=== PATIENT | male | born 1945 | race Caucasian/White ===

== ENCOUNTER 2019-06-20 11:55 | Inpatient (IN) | payer MEDICARE, BC ==
--- NOTE | 2019-06-20 12:19 | EDM.PDOC ---
ED HPI GENERAL MEDICAL PROBLEM - General Chief Complaint: Gastrointestinal Problem Stated Complaint: RECTAL BLEEDING Time Seen by Provider: 06/20/19 12:08 Source of Information: Reports: Patient History Limitations: Reports: No Limitations - History of Present Illness INITIAL COMMENTS - FREE TEXT/NARRATIVE: 73-year-old male presents to the ED feeling weak and very dizzy and lightheaded with standing. This started more or less today. He reports developing black tarry stools without any obvious fresh blood since June 18. He believes he had two bowl movements that day 2 bowel movements on wednesday and 2 this morning CONTAINING dark black stool. Denies taking any Pepto-Bismol. Patient does take a 325 Stormy Aspirin daily and Anacin on a regular basis for chronic low back pain usually daily. Is no history of peptic ulcer disease. Denies any upper abdominal pain nausea or vomiting. No hematemesis. As of has had a colonoscopy within the last 3 years and was told to come back in 10 years no abnormalities were appreciated. His appetite is still present and he's been eating normally. States he has a little bit of pain in the right lower quadrant of the abdomen intermittently but no severe abdominal cramps. No troubles voiding. Onset: Sudden Onset Date: 06/18/19 Duration: Day(s):, Other (Has been having on average 2 black tarry stools per day 4 days.) Location: Reports: Other (Feeling lightheaded and dizzy with standing.) Quality: Reports: Other (Recurrent black tarry stools 4 days. No associated dizziness lightheadedness and weakness) Severity: Moderate (and shortness of breath on minimal exertion.) Improves with: Reports: Rest Worsens with: Reports: Other Context: Reports: Other (Clinically has upper GI bleeding with melena stool 4 days.). Denies: Activity (Warren's when standing up and walking.), Exercise, Lifting, Sick Contact, Trauma Associated Symptoms: Reports: Malaise, Shortness of Breath (On minimal exertion. ), Weakness. 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.) Suprapubic Pain Score (Numeric/FACES): 4 - Related Data Allergies Allergy/AdvReac Type Severity Reaction Status Date / Time No Known Allergies Allergy Verified 06/20/19 12:06 Past Medical History Cardiovascular History: Reports: Hypertension Social & Family History - Tobacco Use Smoking Status *Q: Never Smoker - Caffeine Use Caffeine Use: Reports: Coffee - Recreational Drug Use Recreational Drug Use: No - Living Situation & Occupation Living situation: Reports: Occupation: Retired ED ROS GENERAL - Review of Systems Review Of Systems: See Below Constitutional: Reports: Malaise, Weakness, Fatigue. Denies: Fever, Chills, Decreased Appetite, Weight Loss HEENT: Reports: Glasses Respiratory: Reports: Shortness of Breath. Denies: Wheezing, Pleuritic Chest Pain, Cough, Sputum Cardiovascular: Reports: Blood Pressure Problem, Dyspnea on Exertion (Since noting), Lightheadedness. Denies: Chest Pain, Claudication (Takes medication for blood pressure), Edema, Orthopnea Endocrine: Reports: Fatigue ( dark black tarry stools.) GI/Abdominal: Reports: Abdominal Pain (Mild intermittent right lower quadrant abdominal pain.), Black Stool, Melena, Other. Denies: Nausea (Stools have been black and tarry for the last 4 days usually 2 bowel movements per day.) : Reports: No Symptoms Musculoskeletal: Reports: Back Pain (Chronic low back pain and knee pain intermittently for which he takes Anacin fairly regular. Some days 3 times per day.) Skin: Reports: Pallor Neurological: Reports: Dizziness, Weakness (And lightheadedness with standing. This is what made him come to the hospital today.) Psychiatric: Reports: No Symptoms Hematologic/Lymphatic: Reports: No Symptoms Immunologic: Reports: No Symptoms ED EXAM, GI/ABD - Physical Exam Exam: See Below Exam Limited By: No Limitations General Appearance: Alert, WD/WN, No Apparent Distress, Other (He has pallid in color. Afebrile. Resting tachycardia of 1 22/m. BP 125/72 supine. Sats are 100% on room air. Orthostatic BPs reveal that he dropped down to 68/26 standing. ) Eyes: Bilateral: Pale Conjunctiva (Mild to moderate pallor of the blood for margins.) Throat/Mouth: Normal Inspection, Normal Lips, Other Head: Atraumatic (Tongue is slightly coated and white.), Normocephalic Neck: Normal Inspection, Supple, Non-Tender, Full Range of Motion. No: Carotid Bruit, Limited Range of Motion, Lymphadenopathy (R) Respiratory/Chest: No Respiratory Distress, Lungs Clear, Normal Breath Sounds, No Accessory Muscle Use, Chest Non-Tender Cardiovascular: Normal Peripheral Pulses, Regular Rate, Rhythm, No Gallop, No Murmur, No Rub. No: No Edema GI/Abdominal Exam: Soft, Non-Tender, No Organomegaly, No Mass, Abnormal Bowel Sounds (Bowel sounds are hyperactive in all 4 quadrants.), Other (No evidence of previous abdominal surgery.). No: Distended (No tympany to percussion.) (Male) Exam: No Hernia Rectal (Males) Exam: Black Stool Back Exam: Vertebral Tenderness (Lumbar spine.) Extremities: Pedal Edema (2+ pitting edema both lower extremities to about mid tib-fib bilaterally.), Other (He has some changes in both knees suggestive of osteoarthritic changes with no previous surgery to the knees.) Neurological: Alert, Oriented ( Left is slightly worse on the right.), CN II- XII Intact, Normal Cognition Psychiatric: Normal Affect, Normal Mood Skin Exam: Warm, Dry, Intact, Pallor EKG INTERPRETATION EKG Date: 06/20/19 Time: 12:43 Rhythm: NSR Rate (Beats/Min): 98 [place]: Normal P-Wave: Present QRS: Other (Early R-wave transition consider right ventricular hypertrophy versus septal hypertrophy pattern.) ST-T: Other QT: Normal EKG Interpretation Comments: Borderline ECG Course - Vital Signs Last Recorded V/S: Last Vital Signs Temp 35.8 C 06/20/19 12:01 Pulse 122 H 06/20/19 12:01 Resp 16 06/20/19 12:01 BP 125/72 06/20/19 12:01 Pulse Ox 100 06/20/19 12:01 Orthostatic Blood Pressure [ 68/26 Standing] Orthostatic Blood Pressure [ 109/68 Sitting] Orthostatic Blood Pressure [ 105/70 Supine] - Orders/Labs/Meds Orders: Active Orders 24 hr Category Date Time Status Admission Status [Patient Status] [ADT] Routine ADT 06/20/19 14:53 Active EKG Documentation Completion [RC] STAT Care 06/20/19 12:22 Active Notify Provider Consults [RC] ASDIRECTED Care 06/20/19 14:33 Active Orthostatic Vital Signs [RC] ASDIRECTED Care 06/20/19 12:28 Active Consult to Physician [CONS] Routine Cons 06/20/19 14:32 Active Guaiac [OCCULT BLOOD DIAGNOSTIC] [OP] Stat Lab 06/20/19 12:26 Ordered PACKED CELLS [RED BLOOD CELLS LP] [BBK] Stat Lab 06/20/19 14:45 Received PATIENT RETYPE [BBK] Routine Lab 06/20/19 14:45 Received RED BLOOD CELLS LP [BBK] Stat Lab 06/20/19 12:25 Results TYPE AND SCREEN [BBK] Stat Lab 06/20/19 12:25 Results Pantoprazole [ProTONIX IV] 80 mg Med 06/20/19 14:30 Active Sodium Chloride 0.9% [Normal Saline] 100 ml IV Q10H Sodium Chloride 0.9% [Normal Saline] 1,000 ml Med 06/20/19 12:30 Active IV ASDIRECTED Sodium Chloride 0.9% [Normal Saline] 1,000 ml Med 06/20/19 14:30 Active IV ASDIRECTED Medication Orders Sodium Chloride (Normal Saline) 1,000 mls @ 999 mls/hr IV ASDIRECTED JOSE Last Admin: 06/20/19 12:59 Dose: 999 mls/hr Sodium Chloride (Normal Saline) 1,000 mls @ 250 mls/hr IV ASDIRECTED JOSE Last Admin: 06/20/19 14:50 Dose: 250 mls/hr Pantoprazole Sodium 80 mg/ (Sodium Chloride) 100 mls @ 10 mls/hr IV Q10H [facility] Last Admin: 06/20/19 15:15 Dose: 10 mls/hr Labs: Laboratory Tests 06/20/19 06/20/19 06/20/19 Range/Units 12:25 12:25 12:25 WBC 14.05 H (4.23-9.07) K/mm3 RBC 3.17 L (4.63-6.08) M/mm3 Hgb 9.6 L (13.7-17.5) gm/L Hct 30.2 L (40.1-51.0) % MCV 95.3 H (79.0-92.2) fl MCH 30.3 (25.7-32.2) pg MCHC 31.8 L (32.2-35.5) g/dl RDW Std Deviation 46.9 H (35.1-43.9) fL Plt Count 65 L (163-337) K/mm3 MPV 11.4 (9.4-12.3) fl Neut % (Auto) 84.9 H (34.0-67.9) % Lymph % (Auto) 8.9 L (21.8-53.1) % [place] % (Auto) 5.3 (5.3-12.2) % Eos % (Auto) 0.4 L (0.8-7.0) Baso % (Auto) 0.3 (0.1-1.2) % Neut # (Auto) 11.93 H (1.78-5.38) K/mm3 Lymph # (Auto) 1.25 L (1.32-3.57) K/mm3 [place] # (Auto) 0.74 (0.30-0.82) K/mm3 Eos # (Auto) 0.06 (0.04-0.54) K/mm3 Baso # (Auto) 0.04 (0.01-0.08) K/mm3 Manual Slide Review Abnormal smear PT 11.7 (9.7-12.0) SECONDS INR 1.08 APTT 20 L (22-31) SECONDS Sodium 142 (136-145) mEq/L Potassium 4.2 (3.5-5.1) mEq/L Chloride 110 H (98-107) mEq/L Carbon Dioxide 22 (21-32) mEq/L Anion Gap 14.2 (5-15) BUN 32 H (7-18) mg/dL Creatinine 1.0 (0.7-1.3) mg/dL Est Cr Clr Drug Dosing 66.77 mL/min Estimated GFR (MDRD) > 60 (>60) mL/min BUN/Creatinine Ratio 32.0 H (14-18) Glucose 178 H (83-115) mg/dL Calcium 8.7 (8.5-10.1) mg/dL Magnesium 1.9 (1.8-2.4) mg/dl Total Bilirubin 0.4 (0.2-1.0) mg/dL AST 15 (15-37) U/L ALT 27 (16-63) U/L Alkaline Phosphatase 50 (46-116) U/L Troponin I < 0.017 (0.00-0.056) ng/mL C-Reactive Protein < 0.2 (<1.0) mg/dL NT-Pro-B Natriuret Pep (0-125) pg/mL Total Protein 5.5 L (6.4-8.2) g/dl Albumin 2.8 L (3.4-5.0) g/dl Globulin 2.7 gm/dL Albumin/Globulin Ratio 1.0 (1-2) Blood Type Gel Antibody Screen Crossmatch 06/20/19 06/20/19 Range/Units 12:25 12:25 WBC (4.23-9.07) K/mm3 RBC (4.63-6.08) M/mm3 Hgb (13.7-17.5) gm/L Hct (40.1-51.0) % MCV (79.0-92.2) fl MCH (25.7-32.2) pg MCHC (32.2-35.5) g/dl RDW Std Deviation (35.1-43.9) fL Plt Count (163-337) K/mm3 MPV (9.4-12.3) fl Neut % (Auto) (34.0-67.9) % Lymph % (Auto) (21.8-53.1) % [place] % (Auto) (5.3-12.2) % Eos % (Auto) (0.8-7.0) Baso % (Auto) (0.1-1.2) % Neut # (Auto) (1.78-5.38) K/mm3 Lymph # (Auto) (1.32-3.57) K/mm3 [place] # (Auto) (0.30-0.82) K/mm3 Eos # (Auto) (0.04-0.54) K/mm3 Baso # (Auto) (0.01-0.08) K/mm3 Manual Slide Review PT (9.7-12.0) SECONDS INR APTT (22-31) SECONDS Sodium (136-145) mEq/L Potassium (3.5-5.1) mEq/L Chloride (98-107) mEq/L Carbon Dioxide (21-32) mEq/L Anion Gap (5-15) BUN (7-18) mg/dL Creatinine (0.7-1.3) mg/dL Est Cr Clr Drug Dosing mL/min Estimated GFR (MDRD) (>60) mL/min BUN/Creatinine Ratio (14-18) Glucose (83-115) mg/dL Calcium (8.5-10.1) mg/dL Magnesium (1.8-2.4) mg/dl Total Bilirubin (0.2-1.0) mg/dL AST (15-37) U/L ALT (16-63) U/L Alkaline Phosphatase (46-116) U/L Troponin I (0.00-0.056) ng/mL C-Reactive Protein (<1.0) mg/dL NT-Pro-B Natriuret Pep 41 (0-125) pg/mL Total Protein (6.4-8.2) g/dl Albumin (3.4-5.0) g/dl Globulin gm/dL Albumin/Globulin Ratio (1-2) Blood Type A POSITIVE Gel Antibody Screen Negative Crossmatch See Detail Meds: Medications Generic Name Dose Route Start Last Admin Trade Name Freq PRN Reason Stop Dose Admin Sodium Chloride 1,000 mls @ 999 mls/hr 06/20/19 12:30 06/20/19 12:59 Normal Saline IV 999 mls/hr ASDIRECTED JOSE Administration Sodium Chloride 1,000 mls @ 250 mls/hr 06/20/19 14:30 06/20/19 14:50 Normal Saline IV 250 mls/hr ASDIRECTED JOSE Administration Pantoprazole Sodium 80 mg/ 100 mls @ 10 mls/hr 06/20/19 14:30 06/20/19 15:15 Sodium Chloride IV 10 mls/hr Q10H JOSE Administration Discontinued Medications Generic Name Dose Route Start Last Admin Trade Name Freq PRN Reason Stop Dose Admin Pantoprazole Sodium 80 mg 06/20/19 12:29 06/20/19 12:53 Protonix Iv IVPUSH 06/20/19 12:30 80 mg BOLUS ONE Administration - Radiology Interpretation Free Text/Narrative:: 73-year-old male presents to the ED with a 3 day history of melena stool 2 last every day. Today he presents because he is getting lightheaded dizzy with standing and feeling increasing weakness. Appreciates shortness of breath on minimal exertion which is not usual for him. He denies any abdominal pain other than intermittent right lower quadrant pain. Nipped and cramping. The ball been black in color with no noted bright red blood. No pre-past history of GI bleeding. An ostomy 3 years ago which was reportedly normal. Currently taking 325 aspirin daily and Anacin almost on a daily basis which is most likely the cause of his GI bleeding. Appears to have an upper GI bleed. Is mildly pallid on examination. He has a resting tachycardia and is significantly orthostatic on exam with BP dropping to 68/26 standing. Plan normal saline at open. Routine labs including coags to be done. Patient will receive Protonix 80 mg IV bolus. - Re-Assessments/Exams Free Text/Narrative Re-Assessment/Exam: 06/20/19 13:38 White count is elevated at 14.05. Auto differential shows 85% neutrophils. Manual differential is pending. Hemoglobin is low at 9.6. Hematocrit is 30.2. MCV is 95.3. Platelet count is only 65,000. PT is 11.7 with an INR of 1.08. PTT is 20. Sodium 142 with a potassium of 4.2. Chloride 110 with a bicarbonate 22. Anion gap is 14.2. BUN is 32. Is 1.0. GFR remains greater than 60. Glucose is elevated at 178. Calcium is 8.7 with a magnesium of 1.9. Liver function is normal. Troponin I is less than 0.017. C-reactive protein is less than 0.2. BNP is 41. Total protein is low at 5.5 with albumin fraction of 2.8. Chest x-ray reveals a 2.1 cm left to mid lower lung mass suggestive of a neoplasm. The bony structures are otherwise grossly normal. Cardiac silhouetteis within normal limits. It is recommended that the patient have a noncontrast CT of the chest for further evaluation. 06/20/19 13:58 Patient will need to be admitted to the hospital and discuss case with Dr. Hedrick front window cashier hospitalist. 06/20/19 14:[address] Hedrick and he requested the patient be admitted to the intensive care for close monitoring since his blood pressures been somewhat tenuous with active GI bleeding. I will discuss the case with Dr. lópez on-call surgeon to see if she is available for upper GI endoscopy tomorrow. She will have CT of his chest while he is here noncontrast to rule out anything sinister in his left upper lung. 06/20/19 14:[address] Conklin--front window cashier surgeon and she will see the patient in consultation in the intensive care unit. 06/20/19 14:58 CT of the chest is been completed without contrast as per radiologist's request. [place] lesion appreciated left lower lobe of the lung on the upper lateral segment. It has a dimension of approximately 15 mm x 14 mm. I will await his report in this regard. 06/20/19 15:20 CT scan of the chest is been completed. He was done without contrast. Mass is identified within the left lung base measuring 2.0 cm in size. This contains no abnormal calcifications. There are negative Hounsfield unit measurements within the mass suggesting fat. 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 Minimal nodule is also appreciated within the right middle lobe measuring 4 mm. Slight scarring is noted within the right base. Some pleural nodule noted within the right base measuring 2.2 mm. No mediastinal adenopathy is identified coronary artery calcification is noted. Mild atherosclerotic calcination is seen within the thoracic aorta without aneurysm. No pericardial thickening is identified. Incidentally prominent collecting systems of both kidneys particularly on the left side appreciated. Difficult to rule out a left-sided hydronephrosis. And postvoid bladder scan. Departure - Departure Time of Disposition: 15:22 Disposition: Admitted As Inpatient 67 Condition: Fair Clinical Impression: Nodule of lower lobe of left lung, Upper gastrointestinal bleed, Orthostatic hypotension, Anemia - Discharge Information *PRESCRIPTION DRUG MONITORING PROGRAM REVIEWED*: Not Applicable *COPY OF PRESCRIPTION DRUG MONITORING REPORT IN PATIENT ROSAURA: Not Applicable Referrals: Andrzej Zhong Jr, MD [Primary Care Provider] - Forms: ED Department Discharge - My Orders Last 24 Hours: My Active Orders 06/20/19 12:22 EKG Documentation Completion [RC] STAT 06/20/19 12:25 RED BLOOD CELLS LP [BBK] Stat TYPE AND SCREEN [BBK] Stat 06/20/19 12:26 Guaiac [OCCULT BLOOD DIAGNOSTIC] [OP] Stat 06/20/19 12:28 Orthostatic Vital Signs [RC] ASDIRECTED 06/20/19 12:30 Sodium Chloride 0.9% [Normal Saline] 1,000 ml IV ASDIRECTED 06/20/19 14:30 Pantoprazole [ProTONIX IV] 80 mg Sodium Chloride 0.9% [Normal Saline] 100 ml IV Q10H Sodium Chloride 0.9% [Normal Saline] 1,000 ml IV ASDIRECTED 06/20/19 14:32 Consult to Physician [CONS] Routine 06/20/19 14:33 Notify Provider Consults [RC] ASDIRECTED 06/20/19 14:45 PACKED CELLS [RED BLOOD CELLS LP] [BBK] Stat PATIENT RETYPE [BBK] Routine 06/20/19 14:53 Admission Status [Patient Status] [ADT] Routine - Assessment/Plan Last 24 Hours: My Active Orders 06/20/19 12:22 EKG Documentation Completion [RC] STAT 06/20/19 12:25 RED BLOOD CELLS LP [BBK] Stat TYPE AND SCREEN [BBK] Stat 06/20/19 12:26 Guaiac [OCCULT BLOOD DIAGNOSTIC] [OP] Stat 06/20/19 12:28 Orthostatic Vital Signs [RC] ASDIRECTED 06/20/19 12:30 Sodium Chloride 0.9% [Normal Saline] 1,000 ml IV ASDIRECTED 06/20/19 14:30 Pantoprazole [ProTONIX IV] 80 mg Sodium Chloride 0.9% [Normal Saline] 100 ml IV Q10H Sodium Chloride 0.9% [Normal Saline] 1,000 ml IV ASDIRECTED 06/20/19 14:32 Consult to Physician [CONS] Routine 06/20/19 14:33 Notify Provider Consults [RC] ASDIRECTED 06/20/19 14:45 PACKED CELLS [RED BLOOD CELLS LP] [BBK] Stat PATIENT RETYPE [BBK] Routine 06/20/19 14:53 Admission Status [Patient Status] [ADT] Routine
[2019-06-20] MEDS ORDERED: Pantoprazole 40 MG Vial IVPUSH ONE (12:29)
[2019-06-20] MEDS ORDERED: Sodium Chloride 0.9% 1,000 ML IV SCH ×2 (12:30→14:30)
--- NOTE | 2019-06-20 13:09 | CR ---
Chest: Portable view of the chest was obtained. Comparison: No prior chest imaging. Nodule is identified within the left mid to lower lung measuring 2.1 cm. Lungs otherwise are clear. Heart size and mediastinum are normal. Bony structures are grossly intact. Impression: 1. Nodule within the left lung. Noncontrast chest CT recommended to further evaluate. Neoplasm is within the differential at this point. 2. Nothing acute is otherwise seen on portable chest x-ray. Diagnostic code #9
--- NOTE | 2019-06-20 15:11 | CT ---
CT chest Technique: Multiple axial sections were obtained from above the lung apices inferiorly through the lung base. Intravenous contrast not utilized. Findings: Slightly prominent renal pelvis noted on both sides particularly left side. Difficult to exclude hydronephrosis particularly on the left side. Mass is identified within the left lung base measuring 2.0 cm in size. This contains no abnormal calcifications. There are negative Hounsfield unit measurements within this mass suggesting fat. Findings most likely due to a benign hamartoma. Minimal nodule is noted within the right middle lobe measuring 4 mm. Slight scarring is noted within the right base. Small subpleural nodule noted within the right base measuring 2.2 mm. No mediastinal adenopathy is seen. Coronary artery calcification is noted. Mild atherosclerotic calcification seen within the thoracic aorta without aneurysm. No pericardial thickening is seen. Degenerative change noted within the spine. Impression: 1. Fat within previously noted left lung nodule. Findings suggest the possibility of hamartoma. 2. Two small nodules one within the right middle lobe and one within the right lung base. Recommend repeat noncontrast chest CT study in 9 months to confirm stability. 3. Prominent collecting systems of both kidneys particularly on the left side. These dilated pelves are not completely included on this exam and difficult to exclude left-sided hydronephrosis. Please correlate if patient has any abdominal symptoms. Diagnostic code #3
[2019-06-20] MEDS: Pantoprazole 80 MG in Sodium Chloride 0.9% 100 ML IV SCH (15:15)
[2019-06-20] MEDS ORDERED: Ondansetron 4 MG/2 ML SDV IV PRN (15:56)
[2019-06-20] MEDS ORDERED: Acetaminophen 325 MG Tab PO PRN (15:56)
[2019-06-20] MEDS ORDERED: Albuterol/Ipratropium 3.0-0.5 MG/3 ML Neb Soln NEB PRN (15:56)
[2019-06-20] MEDS ORDERED: Promethazine 6.25 MG in Sodium Chloride 0.9% 50 ML IV PRN (15:56)
[2019-06-20] MEDS ORDERED: Acetaminophen/HYDROcodone 325-5 MG Tab PO PRN (15:56)
--- NOTE | 2019-06-20 15:56 | PCM.HP.2 ---
H&P History of Present Illness - General Date of Service: 06/20/19 Admit Problem/Dx: Admission Diagnosis/Problem Admission Diagnosis/Problem Gastrointestinal hemorrhage Source of Information: Patient, Family, Old Records, Provider, RN Notes Reviewed History Limitations: Reports: No Limitations - History of Present Illness Initial Comments - Free Text/Narative: This is 73 yo pleasant elderly white male with past medical hx/o HTN, HLD and Class I Obesity who comes in with complaints of 3 day hx/o Melena associated with generalized weakness, dizziness and lightheadedness upon standing. He denies any hx/o PUD or GI Bleed. He is not taking Pepto Bismol or Iron Supplement. However he takes 325 ASA and ANACIN for back pain control. He states his colon was scoped in the past with benign findings. His initial work up in ED shows a CBC remarkable for WBC of 14.05, RBC of 3.17, Hgb of 9.6, Hct of 30.2, MCV of 95.3, MCHC of 31.8, RDW of 46.9, Platelet count of 65, Neutrophils of 84.9%, lymphocytes of 8.9%, and Eosinophils of 0.4%. His Chemistry is significant for Cl of 110, BUN of 32, BS of 178, Total Protein of 5.5, and Albumin of 2.8. His Chest CT scan report read as fat within left lung nodule suggestive of hamartoma. 2 small nodules one within the right middle lobe and one within the right lung base. While in ED, he was positive for orthostasis. He received volume resuscitation before her was moved to floor for further work up. He is primarily coming in for Melena/Upper GI Bleed. Suprapubic Pain Score (Numeric/FACES): 4 - Related Data Allergies/Adverse Reactions: Allergies Allergy/AdvReac Type Severity Reaction Status Date / Time No Known Allergies Allergy Verified 06/20/19 12:06 Home Medications: Home Meds Diltiazem HCl [Diltiazem 24Hr Cd] 240 mg PO DAILY 06/20/19 [History] atorvaSTATin [Lipitor] 40 mg PO DAILY 06/20/19 [History] Past Medical History Cardiovascular History: Reports: Hypertension Social & Family History - Tobacco Use Smoking Status *Q: Never Smoker - Caffeine Use Caffeine Use: Reports: Coffee - Recreational Drug Use Recreational Drug Use: No - Living Situation & Occupation Living situation: Reports: Occupation: Retired H&P Review of Systems - Review of Systems: Review Of Systems: ROS reveals no pertinent complaints other than HPI. Exam - Exam Exam: See Below - Vital Signs Vital Signs: Last Vital Signs Temp 35.8 C 06/20/19 12:01 Pulse 122 H 06/20/19 12:01 Resp 16 06/20/19 12:01 BP 125/72 06/20/19 12:01 Pulse Ox 100 06/20/19 12:01 Orthostatic Blood Pressure [ 68/26 Standing] Orthostatic Blood Pressure [ 109/68 Sitting] Orthostatic Blood Pressure [ 105/70 Supine] Weight: 103.419 kg - Exam General: Alert, Oriented, Cooperative. No: Mild Distress HEENT: Conjunctiva Clear, EACs Clear, EOMI, Hearing Intact, Mucosa Moist & Bells , Nares Patent, Normal Nasal Septum, Posterior Pharynx Clear, Pupils Equal, Pupils Reactive Neck: Supple, Trachea Midline Lungs: Clear to Auscultation, Normal Respiratory Effort Cardiovascular: Regular Rate, Regular Rhythm GI/Abdominal Exam: Normal Bowel Sounds, Soft, Non-Tender, No Organomegaly, No Distention, No Abnormal Bruit (Male) Exam: Deferred Rectal (Males) Exam: Deferred Back Exam: Normal Inspection, Decreased Range of Motion Extremities: Normal Inspection, Normal Range of Motion, Non-Tender, No Pedal Edema, Normal Capillary Refill Peripheral Pulses: 2+: Posterior Tibial (L), Posterior Tibial (R), Dorsalis Pedis (L), Dorsalis Pedis (R) Skin: Warm, Dry, Intact Neuro Extensive - Mental Status: Oriented x3, Normal Cognition, Memory Intact Neuro Extensive - Motor, Sensory, Reflexes: CN II-XII Intact, Normal Gait Psychiatric: Alert, Normal Affect, Normal Mood - Patient Data Lab Results Last 24 hrs: Laboratory Results - last 24 hr 06/20/19 06/20/19 06/20/19 Range/Units 12:25 12:25 12:25 WBC 14.05 H (4.23-9.07) K/mm3 RBC 3.17 L (4.63-6.08) M/mm3 Hgb 9.6 L (13.7-17.5) gm/L Hct 30.2 L (40.1-51.0) % MCV 95.3 H (79.0-92.2) fl MCH 30.3 (25.7-32.2) pg MCHC 31.8 L (32.2-35.5) g/dl RDW Std Deviation 46.9 H (35.1-43.9) fL Plt Count 65 L (163-337) K/mm3 MPV 11.4 (9.4-12.3) fl Neut % (Auto) 84.9 H (34.0-67.9) % Lymph % (Auto) 8.9 L (21.8-53.1) % [place] % (Auto) 5.3 (5.3-12.2) % Eos % (Auto) 0.4 L (0.8-7.0) Baso % (Auto) 0.3 (0.1-1.2) % Neut # (Auto) 11.93 H (1.78-5.38) K/mm3 Lymph # (Auto) 1.25 L (1.32-3.57) K/mm3 [place] # (Auto) 0.74 (0.30-0.82) K/mm3 Eos # (Auto) 0.06 (0.04-0.54) K/mm3 Baso # (Auto) 0.04 (0.01-0.08) K/mm3 Manual Slide Review Abnormal smear PT 11.7 (9.7-12.0) SECONDS INR 1.08 APTT 20 L (22-31) SECONDS Sodium 142 (136-145) mEq/L Potassium 4.2 (3.5-5.1) mEq/L Chloride 110 H (98-107) mEq/L Carbon Dioxide 22 (21-32) mEq/L Anion Gap 14.2 (5-15) BUN 32 H (7-18) mg/dL Creatinine 1.0 (0.7-1.3) mg/dL Est Cr Clr Drug Dosing 66.77 mL/min Estimated GFR (MDRD) > 60 (>60) mL/min BUN/Creatinine Ratio 32.0 H (14-18) Glucose 178 H (83-115) mg/dL Calcium 8.7 (8.5-10.1) mg/dL Magnesium 1.9 (1.8-2.4) mg/dl Total Bilirubin 0.4 (0.2-1.0) mg/dL AST 15 (15-37) U/L ALT 27 (16-63) U/L Alkaline Phosphatase 50 (46-116) U/L Troponin I < 0.017 (0.00-0.056) ng/mL C-Reactive Protein < 0.2 (<1.0) mg/dL NT-Pro-B Natriuret Pep (0-125) pg/mL Total Protein 5.5 L (6.4-8.2) g/dl Albumin 2.8 L (3.4-5.0) g/dl Globulin 2.7 gm/dL Albumin/Globulin Ratio 1.0 (1-2) Blood Type Gel Antibody Screen Crossmatch 06/20/19 06/20/19 06/20/19 Range/Units 12:25 12:25 14:45 WBC (4.23-9.07) K/mm3 RBC (4.63-6.08) M/mm3 Hgb (13.7-17.5) gm/L Hct (40.1-51.0) % MCV (79.0-92.2) fl MCH (25.7-32.2) pg MCHC (32.2-35.5) g/dl RDW Std Deviation (35.1-43.9) fL Plt Count (163-337) K/mm3 MPV (9.4-12.3) fl Neut % (Auto) (34.0-67.9) % Lymph % (Auto) (21.8-53.1) % [place] % (Auto) (5.3-12.2) % Eos % (Auto) (0.8-7.0) Baso % (Auto) (0.1-1.2) % Neut # (Auto) (1.78-5.38) K/mm3 Lymph # (Auto) (1.32-3.57) K/mm3 [place] # (Auto) (0.30-0.82) K/mm3 Eos # (Auto) (0.04-0.54) K/mm3 Baso # (Auto) (0.01-0.08) K/mm3 Manual Slide Review PT (9.7-12.0) SECONDS INR APTT (22-31) SECONDS Sodium (136-145) mEq/L Potassium (3.5-5.1) mEq/L Chloride (98-107) mEq/L Carbon Dioxide (21-32) mEq/L Anion Gap (5-15) BUN (7-18) mg/dL Creatinine (0.7-1.3) mg/dL Est Cr Clr Drug Dosing mL/min Estimated GFR (MDRD) (>60) mL/min BUN/Creatinine Ratio (14-18) Glucose (83-115) mg/dL Calcium (8.5-10.1) mg/dL Magnesium (1.8-2.4) mg/dl Total Bilirubin (0.2-1.0) mg/dL AST (15-37) U/L ALT (16-63) U/L Alkaline Phosphatase (46-116) U/L Troponin I (0.00-0.056) ng/mL C-Reactive Protein (<1.0) mg/dL NT-Pro-B Natriuret Pep 41 (0-125) pg/mL Total Protein (6.4-8.2) g/dl Albumin (3.4-5.0) g/dl Globulin gm/dL Albumin/Globulin Ratio (1-2) Blood Type A POSITIVE Gel Antibody Screen Negative Crossmatch See Detail See Detail Result Diagrams: 06/20/19 22:58 06/20/19 12:25 Problem List Initiated/Reviewed/Updated: Yes Orders Last 24hrs: Active Orders 24 hr Category Date Time Status Admission Status [Patient Status] [ADT] Routine ADT 06/20/19 14:53 Active EKG Documentation Completion [RC] STAT Care 06/20/19 12:22 Active Notify Provider Consults [RC] ASDIRECTED Care 06/20/19 14:33 Active Orthostatic Vital Signs [RC] ASDIRECTED Care 06/20/19 12:28 Active Consult to Physician [CONS] Routine Cons 06/20/19 14:32 Active Guaiac [OCCULT BLOOD DIAGNOSTIC] [OP] Stat Lab 06/20/19 12:26 Ordered RED BLOOD CELLS LP [BBK] Stat Lab 06/20/19 12:25 Results TYPE AND SCREEN [BBK] Stat Lab 06/20/19 12:25 Results Pantoprazole [ProTONIX IV] 80 mg Med 06/20/19 14:30 Active Sodium Chloride 0.9% [Normal Saline] 100 ml IV Q10H Sodium Chloride 0.9% [Normal Saline] 1,000 ml Med 06/20/19 12:30 Active IV ASDIRECTED Sodium Chloride 0.9% [Normal Saline] 1,000 ml Med 06/20/19 14:30 Active IV ASDIRECTED Medication Orders Sodium Chloride (Normal Saline) 1,000 mls @ 999 mls/hr IV ASDIRECTED [facility] Last Admin: 06/20/19 12:59 Dose: 999 mls/hr Sodium Chloride (Normal Saline) 1,000 mls @ 250 mls/hr IV ASDIRECTED [facility] Last Admin: 06/20/19 14:50 Dose: 250 mls/hr Pantoprazole Sodium 80 mg/ (Sodium Chloride) 100 mls @ 10 mls/hr IV Q10H [facility] Last Admin: 06/20/19 15:15 Dose: 10 mls/hr Assessment/Plan Comment:: Assessment: Acute: Melena/Upper GI Bleed - 3 day hx/o black tarry stools - Risk Factors: ASA 325 plus Anacin (has ASA) - No GI of GI bleed or PUD - Last colonoscopy about 10 years; clean per patient - Hgb 9.6--> 8.7 - H/H Q6 plus Protonix drip - No ASA and NSAIDS! - Dr. Burr consulted for further eval Microcytic Normocytic Anemia - Consistent with GI Bleed - Iron Panel in AM - Type and Screen 2 units - If meets criteria , will transfuse Thrombocytopenia - Platelet of 65K - Likely 2/2 High Dose ASA use - Avoid ASA Leukocytosis - WBC of 14.05 - Likely 2/2 stress Hyperglycemia - BS of 178 - Likely 2/2 stress Orthostasis - BP of 68/26 on standing position - Likely 2/2 Volume Loss - Received volume resuscitation in ED Abdominal CT Scan Findings - Fat within left lung nodule suggestive of hamartoma - 2 small nodules one within the right middle lobe and one within the right lung base - Repeat Non-contrast CT scan in 9 months Chronic: HTN, HLD and Class I Obesity with BMI of 33 Plan: Admit to ICU Routine AM Labs Resume Home Meds Fall Precautions due to orthostasis Dietary consult fro weight management General Surgery consult DVT/GI Prophylaxis SW/CM for d/c planning Code status: full Additional orders as above - Mortality Measure Prognosis:: Good
--- NOTE | 2019-06-20 16:53 | PCM.CONS ---
H&P History of Present Illness - General Date of Service: 06/20/19 Admit Problem/Dx: Admission Diagnosis/Problem Admission Diagnosis/Problem Gastrointestinal hemorrhage Source of Information: Patient ( ), Provider History Limitations: Reports: No Limitations - History of Present Illness Initial Comments - Free Text/Narative: the patient is a 73-year-old male presented to the emergency department today for findings of weakness, dizziness and lightheadedness. He reports having a three-day history of melena. He had 2 melanotic stools per day within the last 3 day period. After melena started, the patient noted that he also was experiencing some nausea. The patient does take a full strength ASA 325 mg daily with additional 1-2 tabs of Anacin (500mg aspirin per per tab) every few days. He denies any increased abdominal pain or heartburn. he denies any previous episodes of melena. He has not had any hematochezia. He had a normal colonoscopy 2-3 years ago. Suprapubic Pain Score (Numeric/FACES): 4 - Related Data Allergies/Adverse Reactions: Allergies Allergy/AdvReac Type Severity Reaction Status Date / Time No Known Allergies Allergy Verified 06/20/19 12:06 Past Medical History Cardiovascular History: Reports: Hypertension Social & Family History - Family History Neurological: Reports: CVA Oncologic: Reports: Leukemia, Prostate - Tobacco Use Smoking Status *Q: Never Smoker - Caffeine Use Caffeine Use: Reports: Coffee - Recreational Drug Use Recreational Drug Use: No - Living Situation & Occupation Living situation: Reports: Occupation: Retired H&P Review of Systems - Review of Systems: Review Of Systems: See Below General: Reports: No Symptoms HEENT: Reports: No Symptoms Pulmonary: Reports: Shortness of Breath (since onset of melena) Cardiovascular: Reports: No Symptoms Gastrointestinal: Reports: Abdominal Pain (intermittent in the RLQ), Melena, Nausea. Denies: Hematochezia Genitourinary: Reports: No Symptoms Musculoskeletal: Reports: Back Pain, Joint Pain (knee pain) Skin: Reports: No Symptoms Neurological: Reports: Dizziness, Weakness Exam - Exam Exam: See Below - Vital Signs Vital Signs: Last Vital Signs Temp 35.8 C 06/20/19 12:01 Pulse 122 H 06/20/19 12:01 Resp 16 06/20/19 12:01 BP 125/72 06/20/19 12:01 Pulse Ox 95 06/20/19 15:56 Orthostatic Blood Pressure [ 68/26 Standing] Orthostatic Blood Pressure [ 109/68 Sitting] Orthostatic Blood Pressure [ 105/70 Supine] Weight: 103.419 kg - Exam Quality Assessment: No: Supplemental Oxygen General: Alert, Oriented HEENT: Conjunctiva Clear, EOMI Neck: Supple Lungs: Clear to Auscultation, Normal Respiratory Effort Cardiovascular: Regular Rate, Regular Rhythm, Normal S1, Normal S2 GI/Abdominal Exam: Soft, Non-Tender, No Distention (Male) Exam: No Hernia (examined while lying down) Extremities: Normal Inspection, No Pedal Edema Peripheral Pulses: 2+: Dorsalis Pedis (L), Dorsalis Pedis (R) Skin: Warm, Dry, Intact, Other (appears pale) Neurological: Cranial Nerves Intact Neuro Extensive - Mental Status: Normal Mood/Affect - Patient Data Lab Results Last 24 hrs: Laboratory Results - last 24 hr 06/20/19 06/20/19 06/20/19 Range/Units 12:25 12:25 12:25 WBC 14.05 H (4.23-9.07) K/mm3 RBC 3.17 L (4.63-6.08) M/mm3 Hgb 9.6 L (13.7-17.5) gm/L Hct 30.2 L (40.1-51.0) % MCV 95.3 H (79.0-92.2) fl MCH 30.3 (25.7-32.2) pg MCHC 31.8 L (32.2-35.5) g/dl RDW Std Deviation 46.9 H (35.1-43.9) fL Plt Count 65 L (163-337) K/mm3 MPV 11.4 (9.4-12.3) fl Neut % (Auto) 84.9 H (34.0-67.9) % Lymph % (Auto) 8.9 L (21.8-53.1) % [place] % (Auto) 5.3 (5.3-12.2) % Eos % (Auto) 0.4 L (0.8-7.0) Baso % (Auto) 0.3 (0.1-1.2) % Neut # (Auto) 11.93 H (1.78-5.38) K/mm3 Lymph # (Auto) 1.25 L (1.32-3.57) K/mm3 [place] # (Auto) 0.74 (0.30-0.82) K/mm3 Eos # (Auto) 0.06 (0.04-0.54) K/mm3 Baso # (Auto) 0.04 (0.01-0.08) K/mm3 Manual Slide Review Abnormal smear PT 11.7 (9.7-12.0) SECONDS INR 1.08 APTT 20 L (22-31) SECONDS Sodium 142 (136-145) mEq/L Potassium 4.2 (3.5-5.1) mEq/L Chloride 110 H (98-107) mEq/L Carbon Dioxide 22 (21-32) mEq/L Anion Gap 14.2 (5-15) BUN 32 H (7-18) mg/dL Creatinine 1.0 (0.7-1.3) mg/dL Est Cr Clr Drug Dosing 66.77 mL/min Estimated GFR (MDRD) > 60 (>60) mL/min BUN/Creatinine Ratio 32.0 H (14-18) Glucose 178 H (83-115) mg/dL Calcium 8.7 (8.5-10.1) mg/dL Magnesium 1.9 (1.8-2.4) mg/dl Total Bilirubin 0.4 (0.2-1.0) mg/dL AST 15 (15-37) U/L ALT 27 (16-63) U/L Alkaline Phosphatase 50 (46-116) U/L Troponin I < 0.017 (0.00-0.056) ng/mL C-Reactive Protein < 0.2 (<1.0) mg/dL NT-Pro-B Natriuret Pep (0-125) pg/mL Total Protein 5.5 L (6.4-8.2) g/dl Albumin 2.8 L (3.4-5.0) g/dl Globulin 2.7 gm/dL Albumin/Globulin Ratio 1.0 (1-2) Blood Type Gel Antibody Screen Crossmatch 06/20/19 06/20/19 06/20/19 Range/Units 12:25 12:25 14:45 WBC (4.23-9.07) K/mm3 RBC (4.63-6.08) M/mm3 Hgb (13.7-17.5) gm/L Hct (40.1-51.0) % MCV (79.0-92.2) fl MCH (25.7-32.2) pg MCHC (32.2-35.5) g/dl RDW Std Deviation (35.1-43.9) fL Plt Count (163-337) K/mm3 MPV (9.4-12.3) fl Neut % (Auto) (34.0-67.9) % Lymph % (Auto) (21.8-53.1) % [place] % (Auto) (5.3-12.2) % Eos % (Auto) (0.8-7.0) Baso % (Auto) (0.1-1.2) % Neut # (Auto) (1.78-5.38) K/mm3 Lymph # (Auto) (1.32-3.57) K/mm3 [place] # (Auto) (0.30-0.82) K/mm3 Eos # (Auto) (0.04-0.54) K/mm3 Baso # (Auto) (0.01-0.08) K/mm3 Manual Slide Review PT (9.7-12.0) SECONDS INR APTT (22-31) SECONDS Sodium (136-145) mEq/L Potassium (3.5-5.1) mEq/L Chloride (98-107) mEq/L Carbon Dioxide (21-32) mEq/L Anion Gap (5-15) BUN (7-18) mg/dL Creatinine (0.7-1.3) mg/dL Est Cr Clr Drug Dosing mL/min Estimated GFR (MDRD) (>60) mL/min BUN/Creatinine Ratio (14-18) Glucose (83-115) mg/dL Calcium (8.5-10.1) mg/dL Magnesium (1.8-2.4) mg/dl Total Bilirubin (0.2-1.0) mg/dL AST (15-37) U/L ALT (16-63) U/L Alkaline Phosphatase (46-116) U/L Troponin I (0.00-0.056) ng/mL C-Reactive Protein (<1.0) mg/dL NT-Pro-B Natriuret Pep 41 (0-125) pg/mL Total Protein (6.4-8.2) g/dl Albumin (3.4-5.0) g/dl Globulin gm/dL Albumin/Globulin Ratio (1-2) Blood Type A POSITIVE Gel Antibody Screen Negative Crossmatch See Detail See Detail Result Diagrams: 06/20/19 12:25 06/20/19 12:25 Consult PN Assessment/Plan (1) Anemia SNOMED Code(s): 162245811 Code(s): D64.9 - ANEMIA, UNSPECIFIED Current Visit: Yes Qualifiers: Anemia type: unspecified type Qualified Code(s): D64.9 - Anemia, unspecified (2) Orthostatic hypotension SNOMED Code(s): 53544656 Code(s): I95.1 - ORTHOSTATIC HYPOTENSION Current Visit: Yes (3) Upper gastrointestinal bleed SNOMED Code(s): 20474707 Code(s): K92.2 - GASTROINTESTINAL HEMORRHAGE, UNSPECIFIED Current Visit: Yes Problem List Initiated/Reviewed/Updated: Yes Plan: 73-year-old male who presents with upper GI bleed. This is likely due to large intake of NSAIDs - Continue protonix drip - Trend hemoglobin every 4-6 hours - Nothing by mouth with IV fluids resuscitation - monitor for any worsening abdominal exam - blood transfusion per primary team - patient will need to stop NSAID use and attempt management of pain through other means We will continue to evaluate for need for inpatient EGD. Discussed with patient that risk of perforation increases with instrumentation done at this time. He was agreeable to watchful waiting. Vivian Angeles MD General Surgery
[2019-06-20] MEDS ORDERED: hydrALAZINE 20 MG/ML SDV IVPUSH PRN (21:53)
[2019-06-20] MEDS ORDERED: Metoprolol Tartrate 5 MG/5 ML SDV IVPUSH PRN (21:53)
[2019-06-21] MEDS: Pantoprazole 80 MG in Sodium Chloride 0.9% 100 ML IV SCH ×2 (01:35→10:41)
--- NOTE | 2019-06-21 07:23 | PCM.CONSN ---
- General Info Date of Service: 06/21/19 Subjective Update: Pt reports not sleeping well. He had one episode of melena overnight. Otherwise feeling better and dizziness improved. - Patient Data Vitals - Most Recent: Last Vital Signs Temp 36.7 C 06/21/19 04:00 Pulse 122 H 06/20/19 12:01 Resp 18 06/21/19 04:00 BP 121/78 06/21/19 04:00 Pulse Ox 97 06/21/19 04:00 Orthostatic Blood Pressure [ 68/26 Standing] Orthostatic Blood Pressure [ 109/68 Sitting] Orthostatic Blood Pressure [ 105/70 Supine] Weight - Most Recent: 103.056 kg I&O - Last 24 Hours: Intake & Output 06/20/19 06/21/19 06/21/19 22:59 06:59 14:59 Intake Total 38 Balance 38 Lab Results Last 24 Hours: Laboratory Results - last 24 hr 06/20/19 06/20/19 06/20/19 Range/Units 12:25 12:25 12:25 WBC 14.05 H (4.23-9.07) K/mm3 RBC 3.17 L (4.63-6.08) M/mm3 Hgb 9.6 L (13.7-17.5) gm/L Hct 30.2 L (40.1-51.0) % MCV 95.3 H (79.0-92.2) fl MCH 30.3 (25.7-32.2) pg MCHC 31.8 L (32.2-35.5) g/dl RDW Std Deviation 46.9 H (35.1-43.9) fL Plt Count 65 L (163-337) K/mm3 MPV 11.4 (9.4-12.3) fl Neut % (Auto) 84.9 H (34.0-67.9) % Lymph % (Auto) 8.9 L (21.8-53.1) % [place] % (Auto) 5.3 (5.3-12.2) % Eos % (Auto) 0.4 L (0.8-7.0) Baso % (Auto) 0.3 (0.1-1.2) % Neut # (Auto) 11.93 H (1.78-5.38) K/mm3 Lymph # (Auto) 1.25 L (1.32-3.57) K/mm3 [place] # (Auto) 0.74 (0.30-0.82) K/mm3 Eos # (Auto) 0.06 (0.04-0.54) K/mm3 Baso # (Auto) 0.04 (0.01-0.08) K/mm3 Manual Slide Review Abnormal smear PT 11.7 (9.7-12.0) SECONDS INR 1.08 APTT 20 L (22-31) SECONDS Sodium 142 (136-145) mEq/L Potassium 4.2 (3.5-5.1) mEq/L Chloride 110 H (98-107) mEq/L Carbon Dioxide 22 (21-32) mEq/L Anion Gap 14.2 (5-15) BUN 32 H (7-18) mg/dL Creatinine 1.0 (0.7-1.3) mg/dL Est Cr Clr Drug Dosing 66.77 mL/min Estimated GFR (MDRD) > 60 (>60) mL/min BUN/Creatinine Ratio 32.0 H (14-18) Glucose 178 H (83-115) mg/dL Calcium 8.7 (8.5-10.1) mg/dL Magnesium 1.9 (1.8-2.4) mg/dl Total Bilirubin 0.4 (0.2-1.0) mg/dL AST 15 (15-37) U/L ALT 27 (16-63) U/L Alkaline Phosphatase 50 (46-116) U/L Troponin I < 0.017 (0.00-0.056) ng/mL C-Reactive Protein < 0.2 (<1.0) mg/dL NT-Pro-B Natriuret Pep (0-125) pg/mL Total Protein 5.5 L (6.4-8.2) g/dl Albumin 2.8 L (3.4-5.0) g/dl Globulin 2.7 gm/dL Albumin/Globulin Ratio 1.0 (1-2) Blood Type Gel Antibody Screen Crossmatch 06/20/19 06/20/19 06/20/19 Range/Units 12:25 12:25 14:45 WBC (4.23-9.07) K/mm3 RBC (4.63-6.08) M/mm3 Hgb (13.7-17.5) gm/L Hct (40.1-51.0) % MCV (79.0-92.2) fl MCH (25.7-32.2) pg MCHC (32.2-35.5) g/dl RDW Std Deviation (35.1-43.9) fL Plt Count (163-337) K/mm3 MPV (9.4-12.3) fl Neut % (Auto) (34.0-67.9) % Lymph % (Auto) (21.8-53.1) % [place] % (Auto) (5.3-12.2) % Eos % (Auto) (0.8-7.0) Baso % (Auto) (0.1-1.2) % Neut # (Auto) (1.78-5.38) K/mm3 Lymph # (Auto) (1.32-3.57) K/mm3 [place] # (Auto) (0.30-0.82) K/mm3 Eos # (Auto) (0.04-0.54) K/mm3 Baso # (Auto) (0.01-0.08) K/mm3 Manual Slide Review PT (9.7-12.0) SECONDS INR APTT (22-31) SECONDS Sodium (136-145) mEq/L Potassium (3.5-5.1) mEq/L Chloride (98-107) mEq/L Carbon Dioxide (21-32) mEq/L Anion Gap (5-15) BUN (7-18) mg/dL Creatinine (0.7-1.3) mg/dL Est Cr Clr Drug Dosing mL/min Estimated GFR (MDRD) (>60) mL/min BUN/Creatinine Ratio (14-18) Glucose (83-115) mg/dL Calcium (8.5-10.1) mg/dL Magnesium (1.8-2.4) mg/dl Total Bilirubin (0.2-1.0) mg/dL AST (15-37) U/L ALT (16-63) U/L Alkaline Phosphatase (46-116) U/L Troponin I (0.00-0.056) ng/mL C-Reactive Protein (<1.0) mg/dL NT-Pro-B Natriuret Pep 41 (0-125) pg/mL Total Protein (6.4-8.2) g/dl Albumin (3.4-5.0) g/dl Globulin gm/dL Albumin/Globulin Ratio (1-2) Blood Type A POSITIVE Gel Antibody Screen Negative Crossmatch See Detail See Detail 06/20/19 06/20/19 06/21/19 Range/Units 17:13 22:58 05:00 WBC (4.23-9.07) K/mm3 RBC (4.63-6.08) M/mm3 Hgb 8.7 L 8.0 L (13.7-17.5) gm/L Hct 27.1 L 25.1 L (40.1-51.0) % MCV (79.0-92.2) fl MCH (25.7-32.2) pg MCHC (32.2-35.5) g/dl RDW Std Deviation (35.1-43.9) fL Plt Count (163-337) K/mm3 MPV (9.4-12.3) fl Neut % (Auto) (34.0-67.9) % Lymph % (Auto) (21.8-53.1) % [place] % (Auto) (5.3-12.2) % Eos % (Auto) (0.8-7.0) Baso % (Auto) (0.1-1.2) % Neut # (Auto) (1.78-5.38) K/mm3 Lymph # (Auto) (1.32-3.57) K/mm3 [place] # (Auto) (0.30-0.82) K/mm3 Eos # (Auto) (0.04-0.54) K/mm3 Baso # (Auto) (0.01-0.08) K/mm3 Manual Slide Review PT (9.7-12.0) SECONDS INR APTT (22-31) SECONDS Sodium 142 (136-145) mEq/L Potassium 4.3 (3.5-5.1) mEq/L Chloride 111 H (98-107) mEq/L Carbon Dioxide 24 (21-32) mEq/L Anion Gap 11.3 (5-15) BUN 32 H (7-18) mg/dL Creatinine 0.9 (0.7-1.3) mg/dL Est Cr Clr Drug Dosing 74.19 mL/min Estimated GFR (MDRD) > 60 (>60) mL/min BUN/Creatinine Ratio 35.6 H (14-18) Glucose 123 H (83-115) mg/dL Calcium 7.9 L (8.5-10.1) mg/dL Magnesium 2.0 (1.8-2.4) mg/dl Total Bilirubin (0.2-1.0) mg/dL AST (15-37) U/L ALT (16-63) U/L Alkaline Phosphatase (46-116) U/L Troponin I (0.00-0.056) ng/mL C-Reactive Protein (<1.0) mg/dL NT-Pro-B Natriuret Pep (0-125) pg/mL Total Protein (6.4-8.2) g/dl Albumin (3.4-5.0) g/dl Globulin gm/dL Albumin/Globulin Ratio (1-2) Blood Type Gel Antibody Screen Crossmatch 06/21/19 Range/Units 05:00 WBC 11.29 H (4.23-9.07) K/mm3 RBC 2.45 L (4.63-6.08) M/mm3 Hgb 7.6 L (13.7-17.5) gm/L Hct 23.6 L (40.1-51.0) % MCV 96.3 H (79.0-92.2) fl MCH 31.0 (25.7-32.2) pg MCHC 32.2 (32.2-35.5) g/dl RDW Std Deviation 46.8 H (35.1-43.9) fL Plt Count 184 D (163-337) K/mm3 MPV 11.1 (9.4-12.3) fl Neut % (Auto) 78.9 H (34.0-67.9) % Lymph % (Auto) 11.8 L (21.8-53.1) % [place] % (Auto) 8.3 (5.3-12.2) % Eos % (Auto) 0.4 L (0.8-7.0) Baso % (Auto) 0.4 (0.1-1.2) % Neut # (Auto) 8.91 H (1.78-5.38) K/mm3 Lymph # (Auto) 1.33 (1.32-3.57) K/mm3 [place] # (Auto) 0.94 H (0.30-0.82) K/mm3 Eos # (Auto) 0.05 (0.04-0.54) K/mm3 Baso # (Auto) 0.04 (0.01-0.08) K/mm3 Manual Slide Review Abnormal smear PT (9.7-12.0) SECONDS INR APTT (22-31) SECONDS Sodium (136-145) mEq/L Potassium (3.5-5.1) mEq/L Chloride (98-107) mEq/L Carbon Dioxide (21-32) mEq/L Anion Gap (5-15) BUN (7-18) mg/dL Creatinine (0.7-1.3) mg/dL Est Cr Clr Drug Dosing mL/min Estimated GFR (MDRD) (>60) mL/min BUN/Creatinine Ratio (14-18) Glucose (83-115) mg/dL Calcium (8.5-10.1) mg/dL Magnesium (1.8-2.4) mg/dl Total Bilirubin (0.2-1.0) mg/dL AST (15-37) U/L ALT (16-63) U/L Alkaline Phosphatase (46-116) U/L Troponin I (0.00-0.056) ng/mL C-Reactive Protein (<1.0) mg/dL NT-Pro-B Natriuret Pep (0-125) pg/mL Total Protein (6.4-8.2) g/dl Albumin (3.4-5.0) g/dl Globulin gm/dL Albumin/Globulin Ratio (1-2) Blood Type Gel Antibody Screen Crossmatch Art Results Last 24 Hours: Microbiology 06/20/19 21:40 Stool Occult Blood (ART) - Final Stool / Feces POSITIVE OCCULT BLOOD REFERENCE RANGE: NEGATIVE Med Orders - Current: Current Medications Acetaminophen (Tylenol) 650 mg PO Q4H PRN PRN Reason: Pain (Mild 1-3)/fever Hydrocodone Bitart/Acetaminophen ([place] 325-5 Mg) 1 tab PO Q4H PRN PRN Reason: Pain (moderate 4-6) Albuterol/Ipratropium (Duoneb 3.0-0.5 Mg/3 Ml) 3 ml NEB Q4H PRN PRN Reason: Shortness Of Breath/wheezing Diltiazem HCl (Dilacor Xr) 240 mg PO DAILY [facility] Hydralazine HCl (Apresoline) 10 mg IVPUSH Q4H PRN PRN Reason: Hypertension Pantoprazole Sodium 80 mg/ (Sodium Chloride) 100 mls @ 10 mls/hr IV Q10H [facility] Last Admin: 06/21/19 01:35 Dose: 10 mls/hr Promethazine HCl 6.25 mg/ (Sodium Chloride) 50.25 mls @ 100 mls/hr IV Q6H PRN PRN Reason: Nausea/Vomiting Metoprolol Tartrate (Lopressor) 5 mg IVPUSH Q4H PRN PRN Reason: Tachycardia Ondansetron HCl (Zofran) 4 mg IV Q6H PRN PRN Reason: Nausea/Vomiting Rosuvastatin Calcium (Crestor) 10 mg PO DAILY [facility] Discontinued Medications Sodium Chloride (Normal Saline) 1,000 mls @ 999 mls/hr IV ASDIRECTED [facility] Last Admin: 06/20/19 12:59 Dose: 999 mls/hr Sodium Chloride (Normal Saline) 1,000 mls @ 250 mls/hr IV ASDIRECTED [facility] Last Admin: 06/20/19 14:50 Dose: 250 mls/hr Pantoprazole Sodium (Protonix Iv) 80 mg IVPUSH BOLUS ONE Stop: 06/20/19 12:30 Last Admin: 06/20/19 12:53 Dose: 80 mg - Exam Quality Assessment: No: Supplemental Oxygen General: Alert, Oriented HEENT: EOMI Lungs: Normal Respiratory Effort GI/Abdominal Exam: Soft, Non-Tender, No Distention Consult PN Assessment/Plan (1) Anemia SNOMED Code(s): 993435647 Code(s): D64.9 - ANEMIA, UNSPECIFIED Current Visit: Yes Qualifiers: Anemia type: unspecified type Qualified Code(s): D64.9 - Anemia, unspecified (2) Orthostatic hypotension SNOMED Code(s): 61289748 Code(s): I95.1 - ORTHOSTATIC HYPOTENSION Current Visit: Yes (3) Upper gastrointestinal bleed SNOMED Code(s): 00484706 Code(s): K92.2 - GASTROINTESTINAL HEMORRHAGE, UNSPECIFIED Current Visit: Yes Problem List Initiated/Reviewed/Updated: Yes Plan: 73-year-old male who presents with upper GI bleed. This is likely due to large intake of NSAIDs. Hg has decreased but pt subjectively better with normal vital signs, appears to be equilibration of level. - Continue protonix drip until hemoglobin stabilizes - Trend hemoglobin every 4-6 hours as pt has not shown any stable point yet - Nothing by mouth with IV fluids resuscitation. Consider clears when pt has 8- 12h of stable Hg levels - monitor for any worsening abdominal exam - blood transfusion per primary team - patient will need to stop NSAID use and attempt management of pain through other means when outpatient We will continue to evaluate for need for inpatient EGD. Vivian Angeles MD General Surgery
[2019-06-21] MEDS ORDERED: Non-Formulary Medication 1 Each (Atorvastatin 40 MG) PO SCH (09:00)
--- NOTE | 2019-06-21 09:05 | PCM.PN ---
- General Info Date of Service: 06/21/19 Admission Dx/Problem (Free Text): Admission Diagnosis/Problem Admission Diagnosis/Problem Gastrointestinal hemorrhage Subjective Update: No overnight or acute issues. He feels pretty good and his Hg is at 7.6 grams this morning. Functional Status: Reports: Pain Controlled, Tolerating Diet, Ambulating, Urinating - Review of Systems General: Denies: Fever, Weakness, Fatigue, Malaise, Chills HEENT: Reports: No Symptoms Pulmonary: Denies: Shortness of Breath Cardiovascular: Denies: Chest Pain, Palpitations, Dyspnea on Exertion, Edema, Lightheadedness Gastrointestinal: Denies: Abdominal Pain, Nausea, Vomiting Genitourinary: Reports: No Symptoms Musculoskeletal: Reports: No Symptoms Skin: Reports: No Symptoms Neurological: Denies: Confusion, Dizziness, Syncope, Weakness, Gait Disturbance Psychiatric: Denies: Depression, Anxiety, Agitation, Hallucinations - Patient Data Vitals - Most Recent: Last Vital Signs Temp 36.9 C 06/21/19 08:00 Pulse 97 06/21/19 08:00 Resp 16 06/21/19 08:00 BP 146/84 H 06/21/19 08:00 Pulse Ox 96 06/21/19 08:00 Orthostatic Blood Pressure [ 68/26 Standing] Orthostatic Blood Pressure [ 109/68 Sitting] Orthostatic Blood Pressure [ 105/70 Supine] Weight - Most Recent: 103.056 kg I&O - Last 24 Hours: Intake & Output 06/20/19 06/21/19 06/21/19 22:59 06:59 14:59 Intake Total 38 Balance 38 Lab Results Last 24 Hours: Laboratory Results - last 24 hr 06/20/19 06/20/19 06/20/19 Range/Units 12:25 12:25 12:25 WBC 14.05 H (4.23-9.07) K/mm3 RBC 3.17 L (4.63-6.08) M/mm3 Hgb 9.6 L (13.7-17.5) gm/L Hct 30.2 L (40.1-51.0) % MCV 95.3 H (79.0-92.2) fl MCH 30.3 (25.7-32.2) pg MCHC 31.8 L (32.2-35.5) g/dl RDW Std Deviation 46.9 H (35.1-43.9) fL Plt Count 65 L (163-337) K/mm3 MPV 11.4 (9.4-12.3) fl Neut % (Auto) 84.9 H (34.0-67.9) % Lymph % (Auto) 8.9 L (21.8-53.1) % [place] % (Auto) 5.3 (5.3-12.2) % Eos % (Auto) 0.4 L (0.8-7.0) Baso % (Auto) 0.3 (0.1-1.2) % Neut # (Auto) 11.93 H (1.78-5.38) K/mm3 Lymph # (Auto) 1.25 L (1.32-3.57) K/mm3 [place] # (Auto) 0.74 (0.30-0.82) K/mm3 Eos # (Auto) 0.06 (0.04-0.54) K/mm3 Baso # (Auto) 0.04 (0.01-0.08) K/mm3 Manual Slide Review Abnormal smear PT 11.7 (9.7-12.0) SECONDS INR 1.08 APTT 20 L (22-31) SECONDS Sodium 142 (136-145) mEq/L Potassium 4.2 (3.5-5.1) mEq/L Chloride 110 H (98-107) mEq/L Carbon Dioxide 22 (21-32) mEq/L Anion Gap 14.2 (5-15) BUN 32 H (7-18) mg/dL Creatinine 1.0 (0.7-1.3) mg/dL Est Cr Clr Drug Dosing 66.77 mL/min Estimated GFR (MDRD) > 60 (>60) mL/min BUN/Creatinine Ratio 32.0 H (14-18) Glucose 178 H (83-115) mg/dL Calcium 8.7 (8.5-10.1) mg/dL Magnesium 1.9 (1.8-2.4) mg/dl Total Bilirubin 0.4 (0.2-1.0) mg/dL AST 15 (15-37) U/L ALT 27 (16-63) U/L Alkaline Phosphatase 50 (46-116) U/L Troponin I < 0.017 (0.00-0.056) ng/mL C-Reactive Protein < 0.2 (<1.0) mg/dL NT-Pro-B Natriuret Pep (0-125) pg/mL Total Protein 5.5 L (6.4-8.2) g/dl Albumin 2.8 L (3.4-5.0) g/dl Globulin 2.7 gm/dL Albumin/Globulin Ratio 1.0 (1-2) Blood Type Gel Antibody Screen Crossmatch 06/20/19 06/20/19 06/20/19 Range/Units 12:25 12:25 14:45 WBC (4.23-9.07) K/mm3 RBC (4.63-6.08) M/mm3 Hgb (13.7-17.5) gm/L Hct (40.1-51.0) % MCV (79.0-92.2) fl MCH (25.7-32.2) pg MCHC (32.2-35.5) g/dl RDW Std Deviation (35.1-43.9) fL Plt Count (163-337) K/mm3 MPV (9.4-12.3) fl Neut % (Auto) (34.0-67.9) % Lymph % (Auto) (21.8-53.1) % [place] % (Auto) (5.3-12.2) % Eos % (Auto) (0.8-7.0) Baso % (Auto) (0.1-1.2) % Neut # (Auto) (1.78-5.38) K/mm3 Lymph # (Auto) (1.32-3.57) K/mm3 [place] # (Auto) (0.30-0.82) K/mm3 Eos # (Auto) (0.04-0.54) K/mm3 Baso # (Auto) (0.01-0.08) K/mm3 Manual Slide Review PT (9.7-12.0) SECONDS INR APTT (22-31) SECONDS Sodium (136-145) mEq/L Potassium (3.5-5.1) mEq/L Chloride (98-107) mEq/L Carbon Dioxide (21-32) mEq/L Anion Gap (5-15) BUN (7-18) mg/dL Creatinine (0.7-1.3) mg/dL Est Cr Clr Drug Dosing mL/min Estimated GFR (MDRD) (>60) mL/min BUN/Creatinine Ratio (14-18) Glucose (83-115) mg/dL Calcium (8.5-10.1) mg/dL Magnesium (1.8-2.4) mg/dl Total Bilirubin (0.2-1.0) mg/dL AST (15-37) U/L ALT (16-63) U/L Alkaline Phosphatase (46-116) U/L Troponin I (0.00-0.056) ng/mL C-Reactive Protein (<1.0) mg/dL NT-Pro-B Natriuret Pep 41 (0-125) pg/mL Total Protein (6.4-8.2) g/dl Albumin (3.4-5.0) g/dl Globulin gm/dL Albumin/Globulin Ratio (1-2) Blood Type A POSITIVE Gel Antibody Screen Negative Crossmatch See Detail See Detail 06/20/19 06/20/19 06/21/19 Range/Units 17:13 22:58 05:00 WBC (4.23-9.07) K/mm3 RBC (4.63-6.08) M/mm3 Hgb 8.7 L 8.0 L (13.7-17.5) gm/L Hct 27.1 L 25.1 L (40.1-51.0) % MCV (79.0-92.2) fl MCH (25.7-32.2) pg MCHC (32.2-35.5) g/dl RDW Std Deviation (35.1-43.9) fL Plt Count (163-337) K/mm3 MPV (9.4-12.3) fl Neut % (Auto) (34.0-67.9) % Lymph % (Auto) (21.8-53.1) % [place] % (Auto) (5.3-12.2) % Eos % (Auto) (0.8-7.0) Baso % (Auto) (0.1-1.2) % Neut # (Auto) (1.78-5.38) K/mm3 Lymph # (Auto) (1.32-3.57) K/mm3 [place] # (Auto) (0.30-0.82) K/mm3 Eos # (Auto) (0.04-0.54) K/mm3 Baso # (Auto) (0.01-0.08) K/mm3 Manual Slide Review PT (9.7-12.0) SECONDS INR APTT (22-31) SECONDS Sodium 142 (136-145) mEq/L Potassium 4.3 (3.5-5.1) mEq/L Chloride 111 H (98-107) mEq/L Carbon Dioxide 24 (21-32) mEq/L Anion Gap 11.3 (5-15) BUN 32 H (7-18) mg/dL Creatinine 0.9 (0.7-1.3) mg/dL Est Cr Clr Drug Dosing 74.19 mL/min Estimated GFR (MDRD) > 60 (>60) mL/min BUN/Creatinine Ratio 35.6 H (14-18) Glucose 123 H (83-115) mg/dL Calcium 7.9 L (8.5-10.1) mg/dL Magnesium 2.0 (1.8-2.4) mg/dl Total Bilirubin (0.2-1.0) mg/dL AST (15-37) U/L ALT (16-63) U/L Alkaline Phosphatase (46-116) U/L Troponin I (0.00-0.056) ng/mL C-Reactive Protein (<1.0) mg/dL NT-Pro-B Natriuret Pep (0-125) pg/mL Total Protein (6.4-8.2) g/dl Albumin (3.4-5.0) g/dl Globulin gm/dL Albumin/Globulin Ratio (1-2) Blood Type Gel Antibody Screen Crossmatch 06/21/19 Range/Units 05:00 WBC 11.29 H (4.23-9.07) K/mm3 RBC 2.45 L (4.63-6.08) M/mm3 Hgb 7.6 L (13.7-17.5) gm/L Hct 23.6 L (40.1-51.0) % MCV 96.3 H (79.0-92.2) fl MCH 31.0 (25.7-32.2) pg MCHC 32.2 (32.2-35.5) g/dl RDW Std Deviation 46.8 H (35.1-43.9) fL Plt Count 184 D (163-337) K/mm3 MPV 11.1 (9.4-12.3) fl Neut % (Auto) 78.9 H (34.0-67.9) % Lymph % (Auto) 11.8 L (21.8-53.1) % [place] % (Auto) 8.3 (5.3-12.2) % Eos % (Auto) 0.4 L (0.8-7.0) Baso % (Auto) 0.4 (0.1-1.2) % Neut # (Auto) 8.91 H (1.78-5.38) K/mm3 Lymph # (Auto) 1.33 (1.32-3.57) K/mm3 [place] # (Auto) 0.94 H (0.30-0.82) K/mm3 Eos # (Auto) 0.05 (0.04-0.54) K/mm3 Baso # (Auto) 0.04 (0.01-0.08) K/mm3 Manual Slide Review Abnormal smear PT (9.7-12.0) SECONDS INR APTT (22-31) SECONDS Sodium (136-145) mEq/L Potassium (3.5-5.1) mEq/L Chloride (98-107) mEq/L Carbon Dioxide (21-32) mEq/L Anion Gap (5-15) BUN (7-18) mg/dL Creatinine (0.7-1.3) mg/dL Est Cr Clr Drug Dosing mL/min Estimated GFR (MDRD) (>60) mL/min BUN/Creatinine Ratio (14-18) Glucose (83-115) mg/dL Calcium (8.5-10.1) mg/dL Magnesium (1.8-2.4) mg/dl Total Bilirubin (0.2-1.0) mg/dL AST (15-37) U/L ALT (16-63) U/L Alkaline Phosphatase (46-116) U/L Troponin I (0.00-0.056) ng/mL C-Reactive Protein (<1.0) mg/dL NT-Pro-B Natriuret Pep (0-125) pg/mL Total Protein (6.4-8.2) g/dl Albumin (3.4-5.0) g/dl Globulin gm/dL Albumin/Globulin Ratio (1-2) Blood Type Gel Antibody Screen Crossmatch Art Results Last 24 Hours: Microbiology 06/20/19 21:40 Stool Occult Blood (ART) - Final Stool / Feces POSITIVE OCCULT BLOOD REFERENCE RANGE: NEGATIVE Med Orders - Current: Current Medications Acetaminophen (Tylenol) 650 mg PO Q4H PRN PRN Reason: Pain (Mild 1-3)/fever Hydrocodone Bitart/Acetaminophen ([place] 325-5 Mg) 1 tab PO Q4H PRN PRN Reason: Pain (moderate 4-6) Albuterol/Ipratropium (Duoneb 3.0-0.5 Mg/3 Ml) 3 ml NEB Q4H PRN PRN Reason: Shortness Of Breath/wheezing Diltiazem HCl (Dilacor Xr) 240 mg PO DAILY [facility] Hydralazine HCl (Apresoline) 10 mg IVPUSH Q4H PRN PRN Reason: Hypertension Pantoprazole Sodium 80 mg/ (Sodium Chloride) 100 mls @ 10 mls/hr IV Q10H [facility] Last Admin: 06/21/19 01:35 Dose: 10 mls/hr Promethazine HCl 6.25 mg/ (Sodium Chloride) 50.25 mls @ 100 mls/hr IV Q6H PRN PRN Reason: Nausea/Vomiting Metoprolol Tartrate (Lopressor) 5 mg IVPUSH Q4H PRN PRN Reason: Tachycardia Ondansetron HCl (Zofran) 4 mg IV Q6H PRN PRN Reason: Nausea/Vomiting Rosuvastatin Calcium (Crestor) 10 mg PO DAILY [facility] Discontinued Medications Sodium Chloride (Normal Saline) 1,000 mls @ 999 mls/hr IV ASDIRECTED [facility] Last Admin: 06/20/19 12:59 Dose: 999 mls/hr Sodium Chloride (Normal Saline) 1,000 mls @ 250 mls/hr IV ASDIRECTED [facility] Last Admin: 06/20/19 14:50 Dose: 250 mls/hr Pantoprazole Sodium (Protonix Iv) 80 mg IVPUSH BOLUS ONE Stop: 06/20/19 12:30 Last Admin: 06/20/19 12:53 Dose: 80 mg - Exam General: Alert, Oriented, Cooperative, No Acute Distress HEENT: Pupils Equal, Pupils Reactive, EOMI, Mucous Membr. Moist/Prosser Neck: Supple Lungs: Clear to Auscultation, Normal Respiratory Effort Cardiovascular: Regular Rate, Regular Rhythm GI/Abdominal Exam: Normal Bowel Sounds, Soft, Non-Tender, No Organomegaly, No Distention, No Abnormal Bruit (Male) Exam: Deferred Back Exam: Normal Inspection, Decreased Range of Motion Extremities: Normal Inspection, Normal Range of Motion, Non-Tender, No Pedal Edema, Normal Capillary Refill Peripheral Pulses: 2+: Posterior Tibial (L), Posterior Tibial (R), Dorsalis Pedis (L), Dorsalis Pedis (R) Skin: Warm, Dry, Intact Neurological: No New Focal Deficit, Normal Gait Psy/Mental Status: Alert, Normal Affect, Normal Mood - Problem List Review Problem List Initiated/Reviewed/Updated: Yes - My Orders Last 24 Hours: My Active Orders 06/20/19 15:56 Height and Weight [RC] 04 Oxygen Therapy [RC] PRN Up With Assistance [RC] ASDIRECTED VTE/DVT Education [RC] Consult to Case Management/Rv Detailer [CONS] Routine Consult to Spiritual Care [CONS] Routine OT Evaluation and Treatment [CONS] Routine PT Evaluation and Treatment [CONS] Routine Acetaminophen [Tylenol] 650 mg PO Q4H PRN Acetaminophen/HYDROcodone [[place] 325-5 MG] 1 tab PO Q4H PRN Albuterol/Ipratropium [DuoNeb 3.0-0.5 MG/3 ML] 3 ml NEB Q4H PRN Ondansetron [Zofran] 4 mg IV Q6H PRN Promethazine [Phenergan] 6.25 mg Sodium Chloride 0.9% [Normal Saline] 50 ml IV Q6H Resuscitation Status Routine 06/20/19 15:58 Intake and Output [RC] 04,16 06/20/19 15:59 Antiembolic Devices [RC] PER UNIT ROUTINE Cardiac Monitoring [RC] CONTINUOUS RT Aerosol Therapy [RC] ASDIRECTED Sequential Compression Device [OM.PC] Per Unit Routine 06/20/19 19:55 Convert IV to Saline Lock [OM.PC] Routine 06/20/19 21:53 Metoprolol Tartrate [Lopressor] 5 mg IVPUSH Q4H PRN hydrALAZINE [Apresoline] 10 mg IVPUSH Q4H PRN 06/20/19 Dinner NPO [Nothing Per Oral Diet] [DIET] 06/21/19 09:00 Diltiazem [Dilacor XR] 240 mg PO DAILY Rosuvastatin [Crestor] 10 mg PO DAILY 06/21/19 11:00 HEMOGLOBIN/HEMATOCRIT,HH [HEME] Q6H 06/21/19 17:00 HEMOGLOBIN/HEMATOCRIT,HH [HEME] Q6H 06/21/19 23:00 HEMOGLOBIN/HEMATOCRIT,HH [HEME] Q6H 06/21/19 Breakfast Nothing per Oral After Midnight Diet [DIET] 06/22/19 05:00 HEMOGLOBIN/HEMATOCRIT,HH [HEME] Q6H 06/22/19 05:11 BASIC METABOLIC PANEL,BMP [CHEM] AM CBC WITH AUTO DIFF [HEME] AM MAGNESIUM [CHEM] AM 06/23/19 05:11 BASIC METABOLIC PANEL,BMP [CHEM] AM CBC WITH AUTO DIFF [HEME] AM MAGNESIUM [CHEM] AM 06/24/19 05:11 BASIC METABOLIC PANEL,BMP [CHEM] AM CBC WITH AUTO DIFF [HEME] AM MAGNESIUM [CHEM] AM 06/25/19 05:11 BASIC METABOLIC PANEL,BMP [CHEM] AM CBC WITH AUTO DIFF [HEME] AM MAGNESIUM [CHEM] AM - Plan Plan:: Assessment: Acute: Melena/Upper GI Bleed - 3 day hx/o black tarry stools - Risk Factors: ASA 325 plus Anacin (has ASA) - No GI of GI bleed or PUD - Last colonoscopy about 10 years; clean per patient - Hgb 9.6--> 8.7--> .6 - Discontinue Protonix drip; switch to oral dosing - No ASA and NSAIDS! - Dr. Burr consulted for further eval; recommends conservative management Microcytic Normocytic Anemia - Consistent with GI Bleed - Type and Screen 2 units - If meets criteria, will transfuse Leukocytosis - WBC of 14.05-->11.29 - Likely 2/2 stress Hyperglycemia - BS of 178-->123 - Likely 2/[address] Scan Findings - Fat within left lung nodule suggestive of hamartoma - 2 small nodules one within the right middle lobe and one within the right lung base - Repeat Non-contrast CT scan in 9 months Resolved: S/p Thrombocytopenia - Platelet of 65K--> 184 - Likely 2/2 High Dose ASA use - Avoid ASA S/p Orthostasis - BP of 68/26 on standing position - Likely 2/2 Volume Loss - Received volume resuscitation in ED Chronic: HTN, HLD and Class I Obesity with BMI of 33 Plan: He is clinically stable Transfer to [facility] w/o Tele Routine AM Labs Iron and Vit C Supplements Regular Diet Dietary consult for weight management General Surgery following DVT/GI Prophylaxis SW/CM for d/c planning Code status: full Additional orders as above Possible discharge in AM
[2019-06-21] MEDS: Iron Polysaccharides Complex 150 MG Cap PO SCH ×2 (09:29→21:26)
[2019-06-21] MEDS: Diltiazem 240 MG Cap.ER PO SCH (09:29)
[2019-06-21] MEDS: Ascorbic Acid 500 MG Tab PO SCH ×2 (09:29→21:27)
[2019-06-21] MEDS: Rosuvastatin 10 MG Tab PO SCH (09:29)
--- NOTE | 2019-06-21 11:22 | PCM.CONSN ---
- General Info Date of Service: 06/21/19 Admission Dx/Problem (Free Text): Admission Diagnosis/Problem Admission Diagnosis/Problem Gastrointestinal hemorrhage Subjective Update: Vijay reports no new symptoms overnight. He reports improved but still present lightheadedness with ambulation. He says he voided overnight without hematuria, and had one black stool. He denies abdominal pain, nausea and vomiting. He says he slept poorly but has no other complaints. Functional Status: Reports: Ambulating, Urinating - Review of Systems Gastrointestinal: Reports: Melena. Denies: Abdominal Pain, Nausea, Vomiting Genitourinary: Denies: Hematuria - Patient Data Vitals - Most Recent: Last Vital Signs Temp 36.9 C 06/21/19 08:00 Pulse 97 06/21/19 08:00 Resp 16 06/21/19 08:00 BP 146/84 H 06/21/19 08:00 Pulse Ox 96 06/21/19 08:00 Orthostatic Blood Pressure [ 68/26 Standing] Orthostatic Blood Pressure [ 109/68 Sitting] Orthostatic Blood Pressure [ 105/70 Supine] Weight - Most Recent: 103.056 kg I&O - Last 24 Hours: Intake & Output 06/20/19 06/21/19 06/21/19 22:59 06:59 14:59 Intake Total 38 Balance 38 Lab Results Last 24 Hours: Laboratory Results - last 24 hr 06/20/19 06/20/19 06/20/19 Range/Units 12:25 12:25 12:25 WBC 14.05 H (4.23-9.07) K/mm3 RBC 3.17 L (4.63-6.08) M/mm3 Hgb 9.6 L (13.7-17.5) gm/L Hct 30.2 L (40.1-51.0) % MCV 95.3 H (79.0-92.2) fl MCH 30.3 (25.7-32.2) pg MCHC 31.8 L (32.2-35.5) g/dl RDW Std Deviation 46.9 H (35.1-43.9) fL Plt Count 65 L (163-337) K/mm3 MPV 11.4 (9.4-12.3) fl Neut % (Auto) 84.9 H (34.0-67.9) % Lymph % (Auto) 8.9 L (21.8-53.1) % [place] % (Auto) 5.3 (5.3-12.2) % Eos % (Auto) 0.4 L (0.8-7.0) Baso % (Auto) 0.3 (0.1-1.2) % Neut # (Auto) 11.93 H (1.78-5.38) K/mm3 Lymph # (Auto) 1.25 L (1.32-3.57) K/mm3 [place] # (Auto) 0.74 (0.30-0.82) K/mm3 Eos # (Auto) 0.06 (0.04-0.54) K/mm3 Baso # (Auto) 0.04 (0.01-0.08) K/mm3 Manual Slide Review Abnormal smear PT 11.7 (9.7-12.0) SECONDS INR 1.08 APTT 20 L (22-31) SECONDS Sodium 142 (136-145) mEq/L Potassium 4.2 (3.5-5.1) mEq/L Chloride 110 H (98-107) mEq/L Carbon Dioxide 22 (21-32) mEq/L Anion Gap 14.2 (5-15) BUN 32 H (7-18) mg/dL Creatinine 1.0 (0.7-1.3) mg/dL Est Cr Clr Drug Dosing 66.77 mL/min Estimated GFR (MDRD) > 60 (>60) mL/min BUN/Creatinine Ratio 32.0 H (14-18) Glucose 178 H (83-115) mg/dL Calcium 8.7 (8.5-10.1) mg/dL Magnesium 1.9 (1.8-2.4) mg/dl Total Bilirubin 0.4 (0.2-1.0) mg/dL AST 15 (15-37) U/L ALT 27 (16-63) U/L Alkaline Phosphatase 50 (46-116) U/L Troponin I < 0.017 (0.00-0.056) ng/mL C-Reactive Protein < 0.2 (<1.0) mg/dL NT-Pro-B Natriuret Pep (0-125) pg/mL Total Protein 5.5 L (6.4-8.2) g/dl Albumin 2.8 L (3.4-5.0) g/dl Globulin 2.7 gm/dL Albumin/Globulin Ratio 1.0 (1-2) Blood Type Gel Antibody Screen Crossmatch 06/20/19 06/20/19 06/20/19 Range/Units 12:25 12:25 14:45 WBC (4.23-9.07) K/mm3 RBC (4.63-6.08) M/mm3 Hgb (13.7-17.5) gm/L Hct (40.1-51.0) % MCV (79.0-92.2) fl MCH (25.7-32.2) pg MCHC (32.2-35.5) g/dl RDW Std Deviation (35.1-43.9) fL Plt Count (163-337) K/mm3 MPV (9.4-12.3) fl Neut % (Auto) (34.0-67.9) % Lymph % (Auto) (21.8-53.1) % [place] % (Auto) (5.3-12.2) % Eos % (Auto) (0.8-7.0) Baso % (Auto) (0.1-1.2) % Neut # (Auto) (1.78-5.38) K/mm3 Lymph # (Auto) (1.32-3.57) K/mm3 [place] # (Auto) (0.30-0.82) K/mm3 Eos # (Auto) (0.04-0.54) K/mm3 Baso # (Auto) (0.01-0.08) K/mm3 Manual Slide Review PT (9.7-12.0) SECONDS INR APTT (22-31) SECONDS Sodium (136-145) mEq/L Potassium (3.5-5.1) mEq/L Chloride (98-107) mEq/L Carbon Dioxide (21-32) mEq/L Anion Gap (5-15) BUN (7-18) mg/dL Creatinine (0.7-1.3) mg/dL Est Cr Clr Drug Dosing mL/min Estimated GFR (MDRD) (>60) mL/min BUN/Creatinine Ratio (14-18) Glucose (83-115) mg/dL Calcium (8.5-10.1) mg/dL Magnesium (1.8-2.4) mg/dl Total Bilirubin (0.2-1.0) mg/dL AST (15-37) U/L ALT (16-63) U/L Alkaline Phosphatase (46-116) U/L Troponin I (0.00-0.056) ng/mL C-Reactive Protein (<1.0) mg/dL NT-Pro-B Natriuret Pep 41 (0-125) pg/mL Total Protein (6.4-8.2) g/dl Albumin (3.4-5.0) g/dl Globulin gm/dL Albumin/Globulin Ratio (1-2) Blood Type A POSITIVE Gel Antibody Screen Negative Crossmatch See Detail See Detail 06/20/19 06/20/19 06/21/19 Range/Units 17:13 22:58 05:00 WBC (4.23-9.07) K/mm3 RBC (4.63-6.08) M/mm3 Hgb 8.7 L 8.0 L (13.7-17.5) gm/L Hct 27.1 L 25.1 L (40.1-51.0) % MCV (79.0-92.2) fl MCH (25.7-32.2) pg MCHC (32.2-35.5) g/dl RDW Std Deviation (35.1-43.9) fL Plt Count (163-337) K/mm3 MPV (9.4-12.3) fl Neut % (Auto) (34.0-67.9) % Lymph % (Auto) (21.8-53.1) % [place] % (Auto) (5.3-12.2) % Eos % (Auto) (0.8-7.0) Baso % (Auto) (0.1-1.2) % Neut # (Auto) (1.78-5.38) K/mm3 Lymph # (Auto) (1.32-3.57) K/mm3 [place] # (Auto) (0.30-0.82) K/mm3 Eos # (Auto) (0.04-0.54) K/mm3 Baso # (Auto) (0.01-0.08) K/mm3 Manual Slide Review PT (9.7-12.0) SECONDS INR APTT (22-31) SECONDS Sodium 142 (136-145) mEq/L Potassium 4.3 (3.5-5.1) mEq/L Chloride 111 H (98-107) mEq/L Carbon Dioxide 24 (21-32) mEq/L Anion Gap 11.3 (5-15) BUN 32 H (7-18) mg/dL Creatinine 0.9 (0.7-1.3) mg/dL Est Cr Clr Drug Dosing 74.19 mL/min Estimated GFR (MDRD) > 60 (>60) mL/min BUN/Creatinine Ratio 35.6 H (14-18) Glucose 123 H (83-115) mg/dL Calcium 7.9 L (8.5-10.1) mg/dL Magnesium 2.0 (1.8-2.4) mg/dl Total Bilirubin (0.2-1.0) mg/dL AST (15-37) U/L ALT (16-63) U/L Alkaline Phosphatase (46-116) U/L Troponin I (0.00-0.056) ng/mL C-Reactive Protein (<1.0) mg/dL NT-Pro-B Natriuret Pep (0-125) pg/mL Total Protein (6.4-8.2) g/dl Albumin (3.4-5.0) g/dl Globulin gm/dL Albumin/Globulin Ratio (1-2) Blood Type Gel Antibody Screen Crossmatch 06/21/19 06/21/19 Range/Units 05:00 11:00 WBC 11.29 H (4.23-9.07) K/mm3 RBC 2.45 L (4.63-6.08) M/mm3 Hgb 7.6 L 7.5 L (13.7-17.5) gm/L Hct 23.6 L 23.3 L (40.1-51.0) % MCV 96.3 H (79.0-92.2) fl MCH 31.0 (25.7-32.2) pg MCHC 32.2 (32.2-35.5) g/dl RDW Std Deviation 46.8 H (35.1-43.9) fL Plt Count 184 D (163-337) K/mm3 MPV 11.1 (9.4-12.3) fl Neut % (Auto) 78.9 H (34.0-67.9) % Lymph % (Auto) 11.8 L (21.8-53.1) % [place] % (Auto) 8.3 (5.3-12.2) % Eos % (Auto) 0.4 L (0.8-7.0) Baso % (Auto) 0.4 (0.1-1.2) % Neut # (Auto) 8.91 H (1.78-5.38) K/mm3 Lymph # (Auto) 1.33 (1.32-3.57) K/mm3 [place] # (Auto) 0.94 H (0.30-0.82) K/mm3 Eos # (Auto) 0.05 (0.04-0.54) K/mm3 Baso # (Auto) 0.04 (0.01-0.08) K/mm3 Manual Slide Review Abnormal smear PT (9.7-12.0) SECONDS INR APTT (22-31) SECONDS Sodium (136-145) mEq/L Potassium (3.5-5.1) mEq/L Chloride (98-107) mEq/L Carbon Dioxide (21-32) mEq/L Anion Gap (5-15) BUN (7-18) mg/dL Creatinine (0.7-1.3) mg/dL Est Cr Clr Drug Dosing mL/min Estimated GFR (MDRD) (>60) mL/min BUN/Creatinine Ratio (14-18) Glucose (83-115) mg/dL Calcium (8.5-10.1) mg/dL Magnesium (1.8-2.4) mg/dl Total Bilirubin (0.2-1.0) mg/dL AST (15-37) U/L ALT (16-63) U/L Alkaline Phosphatase (46-116) U/L Troponin I (0.00-0.056) ng/mL C-Reactive Protein (<1.0) mg/dL NT-Pro-B Natriuret Pep (0-125) pg/mL Total Protein (6.4-8.2) g/dl Albumin (3.4-5.0) g/dl Globulin gm/dL Albumin/Globulin Ratio (1-2) Blood Type Gel Antibody Screen Crossmatch Art Results Last 24 Hours: Microbiology 06/20/19 21:40 Stool Occult Blood (ART) - Final Stool / Feces POSITIVE OCCULT BLOOD REFERENCE RANGE: NEGATIVE Med Orders - Current: Current Medications Acetaminophen (Tylenol) 650 mg PO Q4H PRN PRN Reason: Pain (Mild 1-3)/fever Hydrocodone Bitart/Acetaminophen ([place] 325-5 Mg) 1 tab PO Q4H PRN PRN Reason: Pain (moderate 4-6) Albuterol/Ipratropium (Duoneb 3.0-0.5 Mg/3 Ml) 3 ml NEB Q4H PRN PRN Reason: Shortness Of Breath/wheezing Ascorbic Acid (Vitamin C) 500 mg PO BID [facility] Last Admin: 06/21/19 09:29 Dose: 500 mg Diltiazem HCl (Dilacor Xr) 240 mg PO DAILY [facility] Last Admin: 06/21/19 09:29 Dose: 240 mg Hydralazine HCl (Apresoline) 10 mg IVPUSH Q4H PRN PRN Reason: Hypertension Promethazine HCl 6.25 mg/ (Sodium Chloride) 50.25 mls @ 100 mls/hr IV Q6H PRN PRN Reason: Nausea/Vomiting Metoprolol Tartrate (Lopressor) 5 mg IVPUSH Q4H PRN PRN Reason: Tachycardia Ondansetron HCl (Zofran) 4 mg IV Q6H PRN PRN Reason: Nausea/Vomiting Pantoprazole Sodium (Protonix) 40 mg PO BID [facility] Polysaccharide Iron Complex (Ferrex 150) 150 mg PO BID [facility] Last Admin: 06/21/19 09:29 Dose: 150 mg Rosuvastatin Calcium (Crestor) 10 mg PO DAILY [facility] Last Admin: 06/21/19 09:29 Dose: 10 mg Discontinued Medications Sodium Chloride (Normal Saline) 1,000 mls @ 999 mls/hr IV ASDIRECTED [facility] Last Admin: 06/20/19 12:59 Dose: 999 mls/hr Sodium Chloride (Normal Saline) 1,000 mls @ 250 mls/hr IV ASDIRECTED [facility] Last Admin: 06/20/19 14:50 Dose: 250 mls/hr Pantoprazole Sodium 80 mg/ (Sodium Chloride) 100 mls @ 10 mls/hr IV Q10H [facility] Stop: 06/21/19 11:00 Last Admin: 06/21/19 10:41 Dose: Not Given Pantoprazole Sodium (Protonix Iv) 80 mg IVPUSH BOLUS ONE Stop: 06/20/19 12:30 Last Admin: 06/20/19 12:53 Dose: 80 mg - Exam General: Alert, Oriented Lungs: Clear to Auscultation Cardiovascular: Regular Rate, Regular Rhythm, No Murmurs GI/Abdominal Exam: Normal Bowel Sounds, Soft, Non-Tender, No Distention. No: Guarding, Rigid Consult PN Assessment/Plan (1) Anemia SNOMED Code(s): 998697519 Code(s): D64.9 - ANEMIA, UNSPECIFIED Current Visit: Yes Qualifiers: Anemia type: unspecified type Qualified Code(s): D64.9 - Anemia, unspecified (2) Orthostatic hypotension SNOMED Code(s): 04600611 Code(s): I95.1 - ORTHOSTATIC HYPOTENSION Current Visit: Yes (3) Upper gastrointestinal bleed SNOMED Code(s): 42798771 Code(s): K92.2 - GASTROINTESTINAL HEMORRHAGE, UNSPECIFIED Current Visit: Yes Problem List Initiated/Reviewed/Updated: No Plan: 1. Continue IV Protonix until Hemoglobin stabilizes. 2. Monitor Hgb/Hct every 4-6 hours. 3. Continue NPO diet until Hgb stabilizes. 4. Consider blood product if hemoglobin drops below 7
[2019-06-21] MEDS: Pantoprazole 40 MG Tab.CR PO SCH (21:30)
--- NOTE | 2019-06-22 07:16 | PCM.CONSN ---
- General Info Date of Service: 06/22/19 Admission Dx/Problem (Free Text): Admission Diagnosis/Problem Admission Diagnosis/Problem Gastrointestinal hemorrhage Subjective Update: Vijay reports feeling well this morning. He ambulates to the restroom without difficulty and denies feeling dizzy or lightheaded. He confirms black stool last night, which he attributes to being supplemented with Zinc. He denies nausea, vomiting, and abdominal pain. Functional Status: Reports: Ambulating - Patient Data Vitals - Most Recent: Last Vital Signs Temp 36.5 C 06/22/19 03:00 Pulse 80 06/21/19 14:50 Resp 18 06/22/19 03:00 BP 133/79 06/22/19 03:00 Pulse Ox 98 06/22/19 03:00 Orthostatic Blood Pressure [ 68/26 Standing] Orthostatic Blood Pressure [ 109/68 Sitting] Orthostatic Blood Pressure [ 105/70 Supine] Weight - Most Recent: 101.831 kg I&O - Last 24 Hours: Intake & Output 06/21/19 06/22/19 06/22/19 22:59 06:59 14:59 Intake Total 961 400 Balance 961 400 Lab Results Last 24 Hours: Laboratory Results - last 24 hr 06/21/19 06/21/19 06/22/19 Range/Units 05:00 11:00 04:30 WBC (4.23-9.07) K/mm3 RBC (4.63-6.08) M/mm3 Hgb 7.5 L (13.7-17.5) gm/L Hct 23.3 L (40.1-51.0) % MCV (79.0-92.2) fl MCH (25.7-32.2) pg MCHC (32.2-35.5) g/dl RDW Std Deviation (35.1-43.9) fL Plt Count (163-337) K/mm3 MPV (9.4-12.3) fl Neut % (Auto) (34.0-67.9) % Lymph % (Auto) (21.8-53.1) % [place] % (Auto) (5.3-12.2) % Eos % (Auto) (0.8-7.0) Baso % (Auto) (0.1-1.2) % Neut # (Auto) (1.78-5.38) K/mm3 Lymph # (Auto) (1.32-3.57) K/mm3 [place] # (Auto) (0.30-0.82) K/mm3 Eos # (Auto) (0.04-0.54) K/mm3 Baso # (Auto) (0.01-0.08) K/mm3 Neutrophils % (Manual) Band Neutrophils % Lymphocytes % (Manual) Atypical Lymphs % Immat Monocytes % (Man) Monocytes % (Manual) Eosinophils % (Manual) Basophils % (Manual) Metamyelocytes % Myelocytes % Promyelocytes % Blast Cells % Plasma Cell % (Manual) Immature Gran # Absolute Neutrophils Absolute Seg Neuts Band Neutrophils # Lymphocytes # (Manual) Monocytes # (Manual) Eosinophils # (Manual) Basophils # (Manual) Absolute Metamyelocyte Absolute Myelocytes Absolute Promyelocytes Absolute Plasma Cells Nucleated RBCs Differential Comment Manual Slide Review Abnormal smear Hypersegmented Neuts Atypical Lymphocytes Vacuolated Monocytes Absolute Blast Cells Toxic Granulation Dohle Bodies Pelger-Huet Cells Megakaryocytic Frags Marcelo Rods WBC Morphology Comment Platelet Estimate Clumped Platelets Giant Platelets Plt Morphology Comment Polychromasia Hypochromasia Poikilocytosis Basophilic Stippling Anisocytosis Microcytosis Macrocytosis Spherocytes Pappenheimer Bodies Sickle Cells Target Cells Tear Drop Cells Ovalocytes Stomatocytes Helmet Cells [place] Bodies [place] Rings [place] Cells Elliptocytes Acanthocytes (Spur) Rouleaux Hemoglobin C Crystals Schistocytes RBC Morph Comment Smear Path Review [place] Bodies Sodium 143 (136-145) mEq/L Potassium 3.6 (3.5-5.1) mEq/L Chloride 110 H (98-107) mEq/L Carbon Dioxide 24 (21-32) mEq/L Anion Gap 12.6 (5-15) BUN 25 H (7-18) mg/dL Creatinine 0.9 (0.7-1.3) mg/dL Est Cr Clr Drug Dosing 74.19 mL/min Estimated GFR (MDRD) > 60 (>60) mL/min BUN/Creatinine Ratio 27.8 H (14-18) Glucose 112 (83-115) mg/dL Calcium 7.9 L (8.5-10.1) mg/dL Magnesium 1.9 (1.8-2.4) mg/dl Slides for Path Review 06/22/19 06/22/19 Range/Units 04:30 06:00 WBC 9.21 H 9.00 (4.23-9.07) K/mm3 RBC 2.28 L 2.15 L (4.63-6.08) M/mm3 Hgb 7.0 L* 6.7 L* (13.7-17.5) gm/L Hct 22.4 L 21.2 L (40.1-51.0) % MCV 98.2 H 98.6 H (79.0-92.2) fl MCH 30.7 31.2 (25.7-32.2) pg MCHC 31.3 L 31.6 L (32.2-35.5) g/dl RDW Std Deviation 47.9 H 47.7 H (35.1-43.9) fL Plt Count 23 L* D 202 D (163-337) K/mm3 MPV 11.8 10.5 (9.4-12.3) fl Neut % (Auto) 76.5 H 75.4 H (34.0-67.9) % Lymph % (Auto) 11.9 L 13.2 L (21.8-53.1) % [place] % (Auto) 9.3 9.0 (5.3-12.2) % Eos % (Auto) 1.6 1.5 (0.8-7.0) Baso % (Auto) 0.4 0.4 (0.1-1.2) % Neut # (Auto) 7.03 H 7.00 H (1.78-5.38) K/mm3 Lymph # (Auto) 1.10 L 1.23 L (1.32-3.57) K/mm3 [place] # (Auto) 0.86 H 0.84 H (0.30-0.82) K/mm3 Eos # (Auto) 0.15 0.14 (0.04-0.54) K/mm3 Baso # (Auto) 0.04 0.04 (0.01-0.08) K/mm3 Neutrophils % (Manual) Cancelled Band Neutrophils % Cancelled Lymphocytes % (Manual) Cancelled Atypical Lymphs % Cancelled Immat Monocytes % (Man) Cancelled Monocytes % (Manual) Cancelled Eosinophils % (Manual) Cancelled Basophils % (Manual) Cancelled Metamyelocytes % Cancelled Myelocytes % Cancelled Promyelocytes % Cancelled Blast Cells % Cancelled Plasma Cell % (Manual) Cancelled Immature Gran # Cancelled Absolute Neutrophils Cancelled Absolute Seg Neuts Cancelled Band Neutrophils # Cancelled Lymphocytes # (Manual) Cancelled Monocytes # (Manual) Cancelled Eosinophils # (Manual) Cancelled Basophils # (Manual) Cancelled Absolute Metamyelocyte Cancelled Absolute Myelocytes Cancelled Absolute Promyelocytes Cancelled Absolute Plasma Cells Cancelled Nucleated RBCs Cancelled Differential Comment Cancelled Manual Slide Review Hypersegmented Neuts Cancelled Atypical Lymphocytes Cancelled Vacuolated Monocytes Cancelled Absolute Blast Cells Cancelled Toxic Granulation Cancelled Dohle Bodies Cancelled Pelger-Huet Cells Cancelled Megakaryocytic Frags Cancelled Marcelo Rods Cancelled WBC Morphology Comment Cancelled Platelet Estimate Cancelled Clumped Platelets Cancelled Giant Platelets Cancelled Plt Morphology Comment Cancelled Polychromasia Cancelled Hypochromasia Cancelled Poikilocytosis Cancelled Basophilic Stippling Cancelled Anisocytosis Cancelled Microcytosis Cancelled Macrocytosis Cancelled Spherocytes Cancelled Pappenheimer Bodies Cancelled Sickle Cells Cancelled Target Cells Cancelled Tear Drop Cells Cancelled Ovalocytes Cancelled Stomatocytes Cancelled Helmet Cells Cancelled [place] Bodies Cancelled [place] Rings Cancelled [place] Cells Cancelled Elliptocytes Cancelled Acanthocytes (Spur) Cancelled Rouleaux Cancelled Hemoglobin C Crystals Cancelled Schistocytes Cancelled RBC Morph Comment Cancelled Smear Path Review Cancelled Bird Bodies Cancelled Sodium (136-145) mEq/L Potassium (3.5-5.1) mEq/L Chloride (98-107) mEq/L Carbon Dioxide (21-32) mEq/L Anion Gap (5-15) BUN (7-18) mg/dL Creatinine (0.7-1.3) mg/dL Est Cr Clr Drug Dosing mL/min Estimated GFR (MDRD) (>60) mL/min BUN/Creatinine Ratio (14-18) Glucose (83-115) mg/dL Calcium (8.5-10.1) mg/dL Magnesium (1.8-2.4) mg/dl Slides for Path Review Cancelled Med Orders - Current: Current Medications Acetaminophen (Tylenol) 650 mg PO Q4H PRN PRN Reason: Pain (Mild 1-3)/fever Hydrocodone Bitart/Acetaminophen ([place] 325-5 Mg) 1 tab PO Q4H PRN PRN Reason: Pain (moderate 4-6) Albuterol/Ipratropium (Duoneb 3.0-0.5 Mg/3 Ml) 3 ml NEB Q4H PRN PRN Reason: Shortness Of Breath/wheezing Ascorbic Acid (Vitamin C) 500 mg PO BID [facility] Last Admin: 06/21/19 21:27 Dose: 500 mg Diltiazem HCl (Dilacor Xr) 240 mg PO DAILY [facility] Last Admin: 06/21/19 09:29 Dose: 240 mg Hydralazine HCl (Apresoline) 10 mg IVPUSH Q4H PRN PRN Reason: Hypertension Promethazine HCl 6.25 mg/ (Sodium Chloride) 50.25 mls @ 100 mls/hr IV Q6H PRN PRN Reason: Nausea/Vomiting Metoprolol Tartrate (Lopressor) 5 mg IVPUSH Q4H PRN PRN Reason: Tachycardia Ondansetron HCl (Zofran) 4 mg IV Q6H PRN PRN Reason: Nausea/Vomiting Pantoprazole Sodium (Protonix) 40 mg PO BID [facility] Last Admin: 06/21/19 21:30 Dose: 40 mg Polysaccharide Iron Complex (Ferrex 150) 150 mg PO BID [facility] Last Admin: 06/21/19 21:26 Dose: 150 mg Rosuvastatin Calcium (Crestor) 10 mg PO DAILY [facility] Last Admin: 06/21/19 09:29 Dose: 10 mg Discontinued Medications Sodium Chloride (Normal Saline) 1,000 mls @ 999 mls/hr IV ASDIRECTED [facility] Last Admin: 06/20/19 12:59 Dose: 999 mls/hr Sodium Chloride (Normal Saline) 1,000 mls @ 250 mls/hr IV ASDIRECTED [facility] Last Admin: 06/20/19 14:50 Dose: 250 mls/hr Pantoprazole Sodium 80 mg/ (Sodium Chloride) 100 mls @ 10 mls/hr IV Q10H [facility] Stop: 06/21/19 11:00 Last Admin: 06/21/19 10:41 Dose: Not Given Pantoprazole Sodium (Protonix Iv) 80 mg IVPUSH BOLUS ONE Stop: 06/20/19 12:30 Last Admin: 06/20/19 12:53 Dose: 80 mg - Exam GI/Abdominal Exam: Normal Bowel Sounds, Soft, Non-Tender, No Distention. No: Guarding, Rigid Consult PN Assessment/Plan (1) Anemia SNOMED Code(s): 007683154 Code(s): D64.9 - ANEMIA, UNSPECIFIED Current Visit: Yes Qualifiers: Anemia type: unspecified type Qualified Code(s): D64.9 - Anemia, unspecified (2) Orthostatic hypotension SNOMED Code(s): 96172216 Code(s): I95.1 - ORTHOSTATIC HYPOTENSION Current Visit: Yes (3) Upper gastrointestinal bleed SNOMED Code(s): 51975393 Code(s): K92.2 - GASTROINTESTINAL HEMORRHAGE, UNSPECIFIED Current Visit: Yes Problem List Initiated/Reviewed/Updated: No Plan: 1. Transfuse 1 unit packed RBCs 2. Continue IV protonix 3. Continue NPO status 4 Check Hgb/Hct every 4-6 hrs
--- NOTE | 2019-06-22 07:16 | PCM.PN ---
- General Info Date of Service: 06/22/19 Admission Dx/Problem (Free Text): Admission Diagnosis/Problem Admission Diagnosis/Problem Gastrointestinal hemorrhage Subjective Update: He had an uneventful night. He has no acute issues or concerns. Her feels pretty good this morning despite having his Hgb level down to 6.7. He had a one time episode of melenic stool. Functional Status: Reports: Pain Controlled, Tolerating Diet, Ambulating, Urinating - Review of Systems General: Denies: Fever, Weakness, Fatigue, Malaise, Chills HEENT: Reports: No Symptoms Pulmonary: Denies: Shortness of Breath Cardiovascular: Denies: Chest Pain, Dyspnea on Exertion, Lightheadedness Gastrointestinal: Denies: Abdominal Pain, Hematochezia, Melena, Nausea, Vomiting Genitourinary: Reports: No Symptoms Musculoskeletal: Reports: No Symptoms Skin: Denies: Bruising Neurological: Denies: Confusion, Difficulty Walking, Weakness, Gait Disturbance Psychiatric: Denies: Depression, Mood Lability, Anxiety, Agitation, Hallucinations - Patient Data Vitals - Most Recent: Last Vital Signs Temp 36.5 C 06/22/19 03:00 Pulse 80 06/21/19 14:50 Resp 18 06/22/19 03:00 BP 133/79 06/22/19 03:00 Pulse Ox 98 06/22/19 03:00 Orthostatic Blood Pressure [ 68/26 Standing] Orthostatic Blood Pressure [ 109/68 Sitting] Orthostatic Blood Pressure [ 105/70 Supine] Weight - Most Recent: 101.831 kg I&O - Last 24 Hours: Intake & Output 06/21/19 06/22/19 06/22/19 22:59 06:59 14:59 Intake Total 961 400 Balance 961 400 Lab Results Last 24 Hours: Laboratory Results - last 24 hr 06/21/19 06/22/19 06/22/19 Range/Units 11:00 04:30 04:30 WBC 9.21 H (4.23-9.07) K/mm3 RBC 2.28 L (4.63-6.08) M/mm3 Hgb 7.5 L 7.0 L* (13.7-17.5) gm/L Hct 23.3 L 22.4 L (40.1-51.0) % MCV 98.2 H (79.0-92.2) fl MCH 30.7 (25.7-32.2) pg MCHC 31.3 L (32.2-35.5) g/dl RDW Std Deviation 47.9 H (35.1-43.9) fL Plt Count 23 L* D (163-337) K/mm3 MPV 11.8 (9.4-12.3) fl Neut % (Auto) 76.5 H (34.0-67.9) % Lymph % (Auto) 11.9 L (21.8-53.1) % [place]Brien % (Auto) 9.3 (5.3-12.2) % Eos % (Auto) 1.6 (0.8-7.0) Baso % (Auto) 0.4 (0.1-1.2) % Neut # (Auto) 7.03 H (1.78-5.38) K/mm3 Lymph # (Auto) 1.10 L (1.32-3.57) K/mm3 [place]Brien # (Auto) 0.86 H (0.30-0.82) K/mm3 Eos # (Auto) 0.15 (0.04-0.54) K/mm3 Baso # (Auto) 0.04 (0.01-0.08) K/mm3 Neutrophils % (Manual) Band Neutrophils % Lymphocytes % (Manual) Atypical Lymphs % Immat Monocytes % (Man) Monocytes % (Manual) Eosinophils % (Manual) Basophils % (Manual) Metamyelocytes % Myelocytes % Promyelocytes % Blast Cells % Plasma Cell % (Manual) Immature Gran # Absolute Neutrophils Absolute Seg Neuts Band Neutrophils # Lymphocytes # (Manual) Monocytes # (Manual) Eosinophils # (Manual) Basophils # (Manual) Absolute Metamyelocyte Absolute Myelocytes Absolute Promyelocytes Absolute Plasma Cells Nucleated RBCs Differential Comment Hypersegmented Neuts Atypical Lymphocytes Vacuolated Monocytes Absolute Blast Cells Toxic Granulation Dohle Bodies Pelger-Huet Cells Megakaryocytic Frags Marcelo Rods WBC Morphology Comment Platelet Estimate Clumped Platelets Giant Platelets Plt Morphology Comment Polychromasia Hypochromasia Poikilocytosis Basophilic Stippling Anisocytosis Microcytosis Macrocytosis Spherocytes Pappenheimer Bodies Sickle Cells Target Cells Tear Drop Cells Ovalocytes Stomatocytes Helmet Cells [place] Bodies Gilbert Rings [place] Cells Elliptocytes Acanthocytes (Spur) Rouleaux Hemoglobin C Crystals Schistocytes RBC Morph Comment Smear Path Review Bird Bodies Sodium 143 (136-145) mEq/L Potassium 3.6 (3.5-5.1) mEq/L Chloride 110 H (98-107) mEq/L Carbon Dioxide 24 (21-32) mEq/L Anion Gap 12.6 (5-15) BUN 25 H (7-18) mg/dL Creatinine 0.9 (0.7-1.3) mg/dL Est Cr Clr Drug Dosing 74.19 mL/min Estimated GFR (MDRD) > 60 (>60) mL/min BUN/Creatinine Ratio 27.8 H (14-18) Glucose 112 (83-115) mg/dL Calcium 7.9 L (8.5-10.1) mg/dL Magnesium 1.9 (1.8-2.4) mg/dl Slides for Path Review 06/22/19 Range/Units 06:00 WBC 9.00 (4.23-9.07) K/mm3 RBC 2.15 L (4.63-6.08) M/mm3 Hgb 6.7 L* (13.7-17.5) gm/L Hct 21.2 L (40.1-51.0) % MCV 98.6 H (79.0-92.2) fl MCH 31.2 (25.7-32.2) pg MCHC 31.6 L (32.2-35.5) g/dl RDW Std Deviation 47.7 H (35.1-43.9) fL Plt Count 202 D (163-337) K/mm3 MPV 10.5 (9.4-12.3) fl Neut % (Auto) 75.4 H (34.0-67.9) % Lymph % (Auto) 13.2 L (21.8-53.1) % O[place]Brien % (Auto) 9.0 (5.3-12.2) % Eos % (Auto) 1.5 (0.8-7.0) Baso % (Auto) 0.4 (0.1-1.2) % Neut # (Auto) 7.00 H (1.78-5.38) K/mm3 Lymph # (Auto) 1.23 L (1.32-3.57) K/mm3 O[place]Brien # (Auto) 0.84 H (0.30-0.82) K/mm3 Eos # (Auto) 0.14 (0.04-0.54) K/mm3 Baso # (Auto) 0.04 (0.01-0.08) K/mm3 Neutrophils % (Manual) Cancelled Band Neutrophils % Cancelled Lymphocytes % (Manual) Cancelled Atypical Lymphs % Cancelled Immat Monocytes % (Man) Cancelled Monocytes % (Manual) Cancelled Eosinophils % (Manual) Cancelled Basophils % (Manual) Cancelled Metamyelocytes % Cancelled Myelocytes % Cancelled Promyelocytes % Cancelled Blast Cells % Cancelled Plasma Cell % (Manual) Cancelled Immature Gran # Cancelled Absolute Neutrophils Cancelled Absolute Seg Neuts Cancelled Band Neutrophils # Cancelled Lymphocytes # (Manual) Cancelled Monocytes # (Manual) Cancelled Eosinophils # (Manual) Cancelled Basophils # (Manual) Cancelled Absolute Metamyelocyte Cancelled Absolute Myelocytes Cancelled Absolute Promyelocytes Cancelled Absolute Plasma Cells Cancelled Nucleated RBCs Cancelled Differential Comment Cancelled Hypersegmented Neuts Cancelled Atypical Lymphocytes Cancelled Vacuolated Monocytes Cancelled Absolute Blast Cells Cancelled Toxic Granulation Cancelled Dohle Bodies Cancelled Pelger-Huet Cells Cancelled Megakaryocytic Frags Cancelled Marcelo Rods Cancelled WBC Morphology Comment Cancelled Platelet Estimate Cancelled Clumped Platelets Cancelled Giant Platelets Cancelled Plt Morphology Comment Cancelled Polychromasia Cancelled Hypochromasia Cancelled Poikilocytosis Cancelled Basophilic Stippling Cancelled Anisocytosis Cancelled Microcytosis Cancelled Macrocytosis Cancelled Spherocytes Cancelled Pappenheimer Bodies Cancelled Sickle Cells Cancelled Target Cells Cancelled Tear Drop Cells Cancelled Ovalocytes Cancelled Stomatocytes Cancelled Helmet Cells Cancelled [place] Bodies Cancelled Gilbert Rings Cancelled [place] Cells Cancelled Elliptocytes Cancelled Acanthocytes (Spur) Cancelled Rouleaux Cancelled Hemoglobin C Crystals Cancelled Schistocytes Cancelled RBC Morph Comment Cancelled Smear Path Review Cancelled Bird Bodies Cancelled Sodium (136-145) mEq/L Potassium (3.5-5.1) mEq/L Chloride (98-107) mEq/L Carbon Dioxide (21-32) mEq/L Anion Gap (5-15) BUN (7-18) mg/dL Creatinine (0.7-1.3) mg/dL Est Cr Clr Drug Dosing mL/min Estimated GFR (MDRD) (>60) mL/min BUN/Creatinine Ratio (14-18) Glucose (83-115) mg/dL Calcium (8.5-10.1) mg/dL Magnesium (1.8-2.4) mg/dl Slides for Path Review Cancelled Med Orders - Current: Current Medications Acetaminophen (Tylenol) 650 mg PO Q4H PRN PRN Reason: Pain (Mild 1-3)/fever Hydrocodone Bitart/Acetaminophen ([place] 325-5 Mg) 1 tab PO Q4H PRN PRN Reason: Pain (moderate 4-6) Albuterol/Ipratropium (Duoneb 3.0-0.5 Mg/3 Ml) 3 ml NEB Q4H PRN PRN Reason: Shortness Of Breath/wheezing Ascorbic Acid (Vitamin C) 500 mg PO BID [facility] Last Admin: 06/21/19 21:27 Dose: 500 mg Diltiazem HCl (Dilacor Xr) 240 mg PO DAILY [facility] Last Admin: 06/21/19 09:29 Dose: 240 mg Hydralazine HCl (Apresoline) 10 mg IVPUSH Q4H PRN PRN Reason: Hypertension Promethazine HCl 6.25 mg/ (Sodium Chloride) 50.25 mls @ 100 mls/hr IV Q6H PRN PRN Reason: Nausea/Vomiting Metoprolol Tartrate (Lopressor) 5 mg IVPUSH Q4H PRN PRN Reason: Tachycardia Ondansetron HCl (Zofran) 4 mg IV Q6H PRN PRN Reason: Nausea/Vomiting Pantoprazole Sodium (Protonix) 40 mg PO BID [facility] Last Admin: 06/21/19 21:30 Dose: 40 mg Polysaccharide Iron Complex (Ferrex 150) 150 mg PO BID [facility] Last Admin: 06/21/19 21:26 Dose: 150 mg Rosuvastatin Calcium (Crestor) 10 mg PO DAILY [facility] Last Admin: 06/21/19 09:29 Dose: 10 mg Discontinued Medications Sodium Chloride (Normal Saline) 1,000 mls @ 999 mls/hr IV ASDIRECTED [facility] Last Admin: 06/20/19 12:59 Dose: 999 mls/hr Sodium Chloride (Normal Saline) 1,000 mls @ 250 mls/hr IV ASDIRECTED [facility] Last Admin: 06/20/19 14:50 Dose: 250 mls/hr Pantoprazole Sodium 80 mg/ (Sodium Chloride) 100 mls @ 10 mls/hr IV Q10H [facility] Stop: 06/21/19 11:00 Last Admin: 06/21/19 10:41 Dose: Not Given Pantoprazole Sodium (Protonix Iv) 80 mg IVPUSH BOLUS ONE Stop: 06/20/19 12:30 Last Admin: 06/20/19 12:53 Dose: 80 mg - Exam General: Alert, Oriented, Cooperative, No Acute Distress HEENT: Pupils Equal, Pupils Reactive, EOMI, Mucous Membr. Moist/[place] Neck: Supple Lungs: Clear to Auscultation, Normal Respiratory Effort Cardiovascular: Regular Rate, Regular Rhythm GI/Abdominal Exam: Normal Bowel Sounds, Soft, Non-Tender, No Organomegaly, No Distention, No Abnormal Bruit, Other (Obese) (Male) Exam: Deferred Back Exam: Normal Inspection, Decreased Range of Motion Extremities: Normal Inspection, Normal Range of Motion, Non-Tender, No Pedal Edema, Normal Capillary Refill Peripheral Pulses: 2+: Dorsalis Pedis (L), Dorsalis Pedis (R) Skin: Warm, Dry, Intact Neurological: No New Focal Deficit, Normal Gait Psy/Mental Status: Alert, Normal Affect, Normal Mood - Problem List Review Problem List Initiated/Reviewed/Updated: Yes - My Orders Last 24 Hours: My Active Orders 06/21/19 09:00 Ascorbic Acid [Vitamin C] 500 mg PO BID Diltiazem [Dilacor XR] 240 mg PO DAILY Iron Polysaccharides Complex [Ferrex 150] 150 mg PO BID Rosuvastatin [Crestor] 10 mg PO DAILY 06/21/19 11:25 Patient Status [ADT] Routine 06/21/19 21:00 Pantoprazole [ProTONIX] 40 mg PO BID 06/21/19 Breakfast Regular Diet [DIET] 06/22/19 04:30 CBC WITH AUTO DIFF [HEME] AM 06/22/19 06:00 CBC WITH AUTO DIFF [HEME] Routine 06/22/19 12:00 CBC WITH AUTO DIFF [HEME] Routine 06/23/19 05:11 BASIC METABOLIC PANEL,BMP [CHEM] AM CBC WITH AUTO DIFF [HEME] AM MAGNESIUM [CHEM] AM 06/24/19 05:11 BASIC METABOLIC PANEL,BMP [CHEM] AM CBC WITH AUTO DIFF [HEME] AM MAGNESIUM [CHEM] AM 06/25/19 05:11 BASIC METABOLIC PANEL,BMP [CHEM] AM CBC WITH AUTO DIFF [HEME] AM MAGNESIUM [CHEM] AM - Plan Plan:: Assessment: Acute: Melena/Upper GI Bleed - 3 day hx/o black tarry stools - Risk Factors: ASA 325 plus Anacin (has ASA) - No GI of GI bleed or PUD - Last colonoscopy about 10 years; clean per patient - Hgb 9.6--> 8.7--> 7.6--> 7.0 --> 6.7 - Discontinue Protonix drip; switch to oral dosing - No ASA and NSAIDS! - Typed and crossed 2 units of PRBCs for transfusion - Dr. Burr recommendations: continue conservative management Microcytic Normocytic Anemia - Consistent with GI Bleed - Type and Screen 2 units - If meets criteria, will transfuse Abdominal CT Scan Findings - Fat within left lung nodule suggestive of hamartoma - 2 Small nodules one within the right middle lobe and one within the right lung base - Repeat Non-contrast CT scan in 9 months Resolved: S/p Thrombocytopenia - Platelet of 65K--> 184 - Likely 2/2 High Dose ASA use - Avoid ASA S/p Orthostasis - BP of 68/26 on standing position - Likely 2/2 Volume Loss - Received volume resuscitation in ED S/p Leukocytosis - WBC of 14.05-->11.29--> 9.0 - Likely 2/2 stress S/p Hyperglycemia - BS of 178-->123-->112 - Likely 2/2 stress Chronic: HTN, HLD and Class I Obesity with BMI of 33 Plan: He remains clinically stable Routine AM Labs NPO Midnight Continue Iron and Vit C Supplements Regular Diet General Surgery following DVT/GI Prophylaxis SW/CM for d/c planning Code status: full Additional orders as above
--- NOTE | 2019-06-22 07:44 | PCM.CONSN ---
- General Info Date of Service: 06/22/19 Subjective Update: Vijay reports feeling well this morning. He reports one episode of solid black stool. He denies any abdominal pain. - Patient Data Vitals - Most Recent: Last Vital Signs Temp 36.5 C 06/22/19 03:00 Pulse 80 06/21/19 14:50 Resp 18 06/22/19 03:00 BP 133/79 06/22/19 03:00 Pulse Ox 98 06/22/19 03:00 Orthostatic Blood Pressure [ 68/26 Standing] Orthostatic Blood Pressure [ 109/68 Sitting] Orthostatic Blood Pressure [ 105/70 Supine] Weight - Most Recent: 101.831 kg I&O - Last 24 Hours: Intake & Output 06/21/19 06/22/19 06/22/19 22:59 06:59 14:59 Intake Total 961 400 Balance 961 400 Lab Results Last 24 Hours: Laboratory Results - last 24 hr 06/21/19 06/22/19 06/22/19 Range/Units 11:00 04:30 04:30 WBC 9.21 H (4.23-9.07) K/mm3 RBC 2.28 L (4.63-6.08) M/mm3 Hgb 7.5 L 7.0 L* (13.7-17.5) gm/L Hct 23.3 L 22.4 L (40.1-51.0) % MCV 98.2 H (79.0-92.2) fl MCH 30.7 (25.7-32.2) pg MCHC 31.3 L (32.2-35.5) g/dl RDW Std Deviation 47.9 H (35.1-43.9) fL Plt Count 23 L* D (163-337) K/mm3 MPV 11.8 (9.4-12.3) fl Neut % (Auto) 76.5 H (34.0-67.9) % Lymph % (Auto) 11.9 L (21.8-53.1) % [place] % (Auto) 9.3 (5.3-12.2) % Eos % (Auto) 1.6 (0.8-7.0) Baso % (Auto) 0.4 (0.1-1.2) % Neut # (Auto) 7.03 H (1.78-5.38) K/mm3 Lymph # (Auto) 1.10 L (1.32-3.57) K/mm3 [place] # (Auto) 0.86 H (0.30-0.82) K/mm3 Eos # (Auto) 0.15 (0.04-0.54) K/mm3 Baso # (Auto) 0.04 (0.01-0.08) K/mm3 Neutrophils % (Manual) Band Neutrophils % Lymphocytes % (Manual) Atypical Lymphs % Immat Monocytes % (Man) Monocytes % (Manual) Eosinophils % (Manual) Basophils % (Manual) Metamyelocytes % Myelocytes % Promyelocytes % Blast Cells % Plasma Cell % (Manual) Immature Gran # Absolute Neutrophils Absolute Seg Neuts Band Neutrophils # Lymphocytes # (Manual) Monocytes # (Manual) Eosinophils # (Manual) Basophils # (Manual) Absolute Metamyelocyte Absolute Myelocytes Absolute Promyelocytes Absolute Plasma Cells Nucleated RBCs Differential Comment Hypersegmented Neuts Atypical Lymphocytes Vacuolated Monocytes Absolute Blast Cells Toxic Granulation Dohle Bodies Pelger-Huet Cells Megakaryocytic Frags Marcelo Rods WBC Morphology Comment Platelet Estimate Clumped Platelets Giant Platelets Plt Morphology Comment Polychromasia Hypochromasia Poikilocytosis Basophilic Stippling Anisocytosis Microcytosis Macrocytosis Spherocytes Pappenheimer Bodies Sickle Cells Target Cells Tear Drop Cells Ovalocytes Stomatocytes Helmet Cells [place] Bodies Millis Rings [place] Cells Elliptocytes Acanthocytes (Spur) Rouleaux Hemoglobin C Crystals Schistocytes RBC Morph Comment Smear Path Review Bird Bodies Sodium 143 (136-145) mEq/L Potassium 3.6 (3.5-5.1) mEq/L Chloride 110 H (98-107) mEq/L Carbon Dioxide 24 (21-32) mEq/L Anion Gap 12.6 (5-15) BUN 25 H (7-18) mg/dL Creatinine 0.9 (0.7-1.3) mg/dL Est Cr Clr Drug Dosing 74.19 mL/min Estimated GFR (MDRD) > 60 (>60) mL/min BUN/Creatinine Ratio 27.8 H (14-18) Glucose 112 (83-115) mg/dL Calcium 7.9 L (8.5-10.1) mg/dL Magnesium 1.9 (1.8-2.4) mg/dl Slides for Path Review 08/29/19 Range/Units 06:00 WBC 9.00 (4.23-9.07) K/mm3 RBC 2.15 L (4.63-6.08) M/mm3 Hgb 6.7 L* (13.7-17.5) gm/L Hct 21.2 L (40.1-51.0) % MCV 98.6 H (79.0-92.2) fl MCH 31.2 (25.7-32.2) pg MCHC 31.6 L (32.2-35.5) g/dl RDW Std Deviation 47.7 H (35.1-43.9) fL Plt Count 202 D (163-337) K/mm3 MPV 10.5 (9.4-12.3) fl Neut % (Auto) 75.4 H (34.0-67.9) % Lymph % (Auto) 13.2 L (21.8-53.1) % [place] % (Auto) 9.0 (5.3-12.2) % Eos % (Auto) 1.5 (0.8-7.0) Baso % (Auto) 0.4 (0.1-1.2) % Neut # (Auto) 7.00 H (1.78-5.38) K/mm3 Lymph # (Auto) 1.23 L (1.32-3.57) K/mm3 [place] # (Auto) 0.84 H (0.30-0.82) K/mm3 Eos # (Auto) 0.14 (0.04-0.54) K/mm3 Baso # (Auto) 0.04 (0.01-0.08) K/mm3 Neutrophils % (Manual) Cancelled Band Neutrophils % Cancelled Lymphocytes % (Manual) Cancelled Atypical Lymphs % Cancelled Immat Monocytes % (Man) Cancelled Monocytes % (Manual) Cancelled Eosinophils % (Manual) Cancelled Basophils % (Manual) Cancelled Metamyelocytes % Cancelled Myelocytes % Cancelled Promyelocytes % Cancelled Blast Cells % Cancelled Plasma Cell % (Manual) Cancelled Immature Gran # Cancelled Absolute Neutrophils Cancelled Absolute Seg Neuts Cancelled Band Neutrophils # Cancelled Lymphocytes # (Manual) Cancelled Monocytes # (Manual) Cancelled Eosinophils # (Manual) Cancelled Basophils # (Manual) Cancelled Absolute Metamyelocyte Cancelled Absolute Myelocytes Cancelled Absolute Promyelocytes Cancelled Absolute Plasma Cells Cancelled Nucleated RBCs Cancelled Differential Comment Cancelled Hypersegmented Neuts Cancelled Atypical Lymphocytes Cancelled Vacuolated Monocytes Cancelled Absolute Blast Cells Cancelled Toxic Granulation Cancelled Dohle Bodies Cancelled Pelger-Huet Cells Cancelled Megakaryocytic Frags Cancelled Marcelo Rods Cancelled WBC Morphology Comment Cancelled Platelet Estimate Cancelled Clumped Platelets Cancelled Giant Platelets Cancelled Plt Morphology Comment Cancelled Polychromasia Cancelled Hypochromasia Cancelled Poikilocytosis Cancelled Basophilic Stippling Cancelled Anisocytosis Cancelled Microcytosis Cancelled Macrocytosis Cancelled Spherocytes Cancelled Pappenheimer Bodies Cancelled Sickle Cells Cancelled Target Cells Cancelled Tear Drop Cells Cancelled Ovalocytes Cancelled Stomatocytes Cancelled Helmet Cells Cancelled [place] Bodies Cancelled Millis Rings Cancelled [place] Cells Cancelled Elliptocytes Cancelled Acanthocytes (Spur) Cancelled Rouleaux Cancelled Hemoglobin C Crystals Cancelled Schistocytes Cancelled RBC Morph Comment Cancelled Smear Path Review Cancelled Bird Bodies Cancelled Sodium (136-145) mEq/L Potassium (3.5-5.1) mEq/L Chloride (98-107) mEq/L Carbon Dioxide (21-32) mEq/L Anion Gap (5-15) BUN (7-18) mg/dL Creatinine (0.7-1.3) mg/dL Est Cr Clr Drug Dosing mL/min Estimated GFR (MDRD) (>60) mL/min BUN/Creatinine Ratio (14-18) Glucose (83-115) mg/dL Calcium (8.5-10.1) mg/dL Magnesium (1.8-2.4) mg/dl Slides for Path Review Cancelled Med Orders - Current: Current Medications Acetaminophen (Tylenol) 650 mg PO Q4H PRN PRN Reason: Pain (Mild 1-3)/fever Hydrocodone Bitart/Acetaminophen ([place] 325-5 Mg) 1 tab PO Q4H PRN PRN Reason: Pain (moderate 4-6) Albuterol/Ipratropium (Duoneb 3.0-0.5 Mg/3 Ml) 3 ml NEB Q4H PRN PRN Reason: Shortness Of Breath/wheezing Ascorbic Acid (Vitamin C) 500 mg PO BID [facility] Last Admin: 06/21/19 21:27 Dose: 500 mg Diltiazem HCl (Dilacor Xr) 240 mg PO DAILY [facility] Last Admin: 06/21/19 09:29 Dose: 240 mg Hydralazine HCl (Apresoline) 10 mg IVPUSH Q4H PRN PRN Reason: Hypertension Promethazine HCl 6.25 mg/ (Sodium Chloride) 50.25 mls @ 100 mls/hr IV Q6H PRN PRN Reason: Nausea/Vomiting Metoprolol Tartrate (Lopressor) 5 mg IVPUSH Q4H PRN PRN Reason: Tachycardia Ondansetron HCl (Zofran) 4 mg IV Q6H PRN PRN Reason: Nausea/Vomiting Pantoprazole Sodium (Protonix) 40 mg PO BID [facility] Last Admin: 06/21/19 21:30 Dose: 40 mg Polysaccharide Iron Complex (Ferrex 150) 150 mg PO BID [facility] Last Admin: 06/21/19 21:26 Dose: 150 mg Rosuvastatin Calcium (Crestor) 10 mg PO DAILY [facility] Last Admin: 06/21/19 09:29 Dose: 10 mg Discontinued Medications Sodium Chloride (Normal Saline) 1,000 mls @ 999 mls/hr IV ASDIRECTED [facility] Last Admin: 06/20/19 12:59 Dose: 999 mls/hr Sodium Chloride (Normal Saline) 1,000 mls @ 250 mls/hr IV ASDIRECTED [facility] Last Admin: 06/20/19 14:50 Dose: 250 mls/hr Pantoprazole Sodium 80 mg/ (Sodium Chloride) 100 mls @ 10 mls/hr IV Q10H [facility] Stop: 06/21/19 11:00 Last Admin: 06/21/19 10:41 Dose: Not Given Pantoprazole Sodium (Protonix Iv) 80 mg IVPUSH BOLUS ONE Stop: 06/20/19 12:30 Last Admin: 06/20/19 12:53 Dose: 80 mg - Exam Quality Assessment: No: Supplemental Oxygen General: Alert, Oriented Lungs: Normal Respiratory Effort GI/Abdominal Exam: Soft, Non-Tender, No Distention Consult PN Assessment/Plan (1) Anemia SNOMED Code(s): 179842444 Code(s): D64.9 - ANEMIA, UNSPECIFIED Current Visit: Yes Qualifiers: Anemia type: unspecified type Qualified Code(s): D64.9 - Anemia, unspecified (2) Orthostatic hypotension SNOMED Code(s): 41124670 Code(s): I95.1 - ORTHOSTATIC HYPOTENSION Current Visit: Yes (3) Upper gastrointestinal bleed SNOMED Code(s): 10725153 Code(s): K92.2 - GASTROINTESTINAL HEMORRHAGE, UNSPECIFIED Current Visit: Yes Problem List Initiated/Reviewed/Updated: Yes Plan: 73-year-old male who presents with upper GI bleed. This is likely due to large intake of NSAIDs. Hg has decreased but pt subjectively feels well with normal vital signs. - Continue protonix drip until hemoglobin stabilizes - Trend hemoglobin every 4-6 hours as pt has not shown any stable point yet - Nothing by mouth with IV fluids resuscitation. Consider clears when pt has 8- 12h of stable Hg levels - monitor for any worsening abdominal exam - blood transfusion per primary team, recommend 1-2 U PRBC - patient will need to stop NSAID use and attempt management of pain through other means when outpatient We will continue to evaluate for need for inpatient EGD. No strong indication at this point since pt is feeling well and melena appears to be clearing. Vivian Angeles MD General Surgery
[2019-06-22] MEDS ORDERED: Sodium Chloride 0.9% 250 ML IV SCH ×2 (09:15→15:15)
[2019-06-22] MEDS: Pantoprazole 40 MG Tab.CR PO SCH ×2 (09:18→20:24)
[2019-06-22] MEDS: Diltiazem 240 MG Cap.ER PO SCH (09:18)
[2019-06-22] MEDS: Ascorbic Acid 500 MG Tab PO SCH ×2 (09:18→20:23)
[2019-06-22] MEDS: Rosuvastatin 10 MG Tab PO SCH (09:19)
[2019-06-22] MEDS: Iron Polysaccharides Complex 150 MG Cap PO SCH ×2 (09:19→20:23)
--- NOTE | 2019-06-23 08:00 | PCM.DCSUM1 ---
Discharge Summary - Hospital Course HPI Initial Comments: This is 73 yo pleasant elderly white male with past medical hx/o HTN, HLD and Class I Obesity who comes in with complaints of 3 day hx/o Melena associated with generalized weakness, dizziness and lightheadedness upon standing. He denies any hx/o PUD or GI Bleed. He is not taking Pepto Bismol or Iron Supplement. However he takes 325 ASA and ANACIN for back pain control. He states his colon was scoped in the past with benign findings. His initial work up in ED shows a CBC remarkable for WBC of 14.05, RBC of 3.17, Hgb of 9.6, Hct of 30.2, MCV of 95.3, MCHC of 31.8, RDW of 46.9, Platelet count of 65, Neutrophils of 84.9%, lymphocytes of 8.9%, and Eosinophils of 0.4%. His Chemistry is significant for Cl of 110, BUN of 32, BS of 178, Total Protein of 5.5, and Albumin of 2.8. His Chest CT scan report read as fat within left lung nodule suggestive of hamartoma. 2 small nodules one within the right middle lobe and one within the right lung base. While in ED, he was positive for orthostasis. He received volume resuscitation before her was moved to floor for further work up. He is primarily coming in for Melena/Upper GI Bleed. Diagnosis: Stroke: No Modified Uehling Scale: No Symptoms at All Modified Robert Scale Score: 0 - Discharge Data Discharge Date: 06/23/19 Discharge Disposition: Home, Self-Care 01 Condition: Good - Discharge Diagnosis/Problem(s) (1) Anemia SNOMED Code(s): 797100624 ICD Code: D64.9 - ANEMIA, UNSPECIFIED Status: Acute Qualifiers: Anemia type: unspecified type Qualified Code(s): D64.9 - Anemia, unspecified (2) Nodule of lower lobe of left lung SNOMED Code(s): 394683935 ICD Code: R91.1 - SOLITARY PULMONARY NODULE Status: Acute (3) Orthostatic hypotension SNOMED Code(s): 97660583 ICD Code: I95.1 - ORTHOSTATIC HYPOTENSION Status: Resolved (4) Upper gastrointestinal bleed SNOMED Code(s): 54167156 ICD Code: K92.2 - GASTROINTESTINAL HEMORRHAGE, UNSPECIFIED Status: Resolved - Patient Summary/Data Operative Procedure(s) Performed: None Complications: None Consults: Consultations 06/20/19 14:32 Consult to Physician [CONS] Routine 06/20/19 15:56 Consult to Case Management/Farm Crew Leader [CONS] Routine Consult to Spiritual Care [CONS] Routine OT Evaluation and Treatment [CONS] Routine PT Evaluation and Treatment [CONS] Routine Labs Pending at D/C: None Recommended Follow-up Testing/Procedures: Chest CT scan in 9 months and follow up with Dr. Burr after discharge Planned Operative Procedure(s) after DC: None Hospital Course: Patient was primarily admitted for Symptomatic Anemia felt to be upper GI bleed in origin from ASA abuse. He presented with a Hgb level 9.7 w/o baseline comparison but orthostatic on presentation. He received volume resuscitation in ED and was put on PPI gtt when he transferred to the unit. Dr. Burr was consulted but recommended only conservative management. His hospital course was uncomplicated but he received 2 units of PRBC for transfusion. His most recent Hgb level is at 8.7 w/o any GI issues. Once medically stable, he was then discharged to home. He was advised to comply with discharge instructions and follow up with PCP as well as General Surgery as scheduled. He was told to have a repeat chest CT scan in 9 months for his pulmonary nodules found during this admission. And most importantly, he was further advised to come back or seek immediate care should his symptoms persist or get worse. The patient expressed understanding and in agreement with the plans as discussed above. All questions or concerns answered. - Patient Instructions Diet: Usual Diet as Tolerated Activity: As Tolerated Driving: Do Not Drive (just for today) Showering/Bathing: May Shower Notify Provider of: Fever, Increased Pain, Nausea and/or Vomiting Other/Special Instructions: - Please take all new medications as directed. - Resume routine home medications and activity as tolerated per PT/OT. - Recommend repeat CBC through your family doctor's office on your follow up appointment. - Repeat CT scan in 9 months for your pulmonary nodules. - Follow up with General Surgery as scheduled. - Avoid Aspirin or Aspirin Containing Products plus NSAIDs (Ibuprofen, Motrin, Advil). - Follow up with your doctor 1 week with repeat labs. - Come back or seek immediate care should your symptoms persist or get worse - Discharge Plan *PRESCRIPTION DRUG MONITORING PROGRAM REVIEWED*: Not Applicable *COPY OF PRESCRIPTION DRUG MONITORING REPORT IN PATIENT ROSAURA: Not Applicable Prescriptions/Med Rec: Ascorbic Acid/Ascorbate Sodium [Vitamin C 250 mg Tablet Chew] 250 mg PO BID #60 tab.chew RX: Iron Polysaccharides Complex [Ferrex 150] 150 mg PO BID #60 cap Pantoprazole Sodium [Protonix] 40 mg PO DAILY #30 tablet. Home Medications: Home Meds RX: Diltiazem HCl [Diltiazem 24Hr Cd] 240 mg PO DAILY 06/20/19 [History] RX: atorvaSTATin [Lipitor] 40 mg PO DAILY 06/20/19 [History] Ascorbic Acid/Ascorbate Sodium [Vitamin C 250 mg Tablet Chew] 250 mg PO BID #60 tab.chew 06/23/19 [Rx] Pantoprazole Sodium [Protonix] 40 mg PO DAILY #30 tablet. 06/23/19 [Rx] RX: Iron Polysaccharides Complex [Ferrex 150] 150 mg PO BID #60 cap 06/23/19 [Rx ] Oxygen Therapy Mode: Room Air Patient Handouts: Orthostatic Hypotension, Anemia, Gastrointestinal Bleeding, [id number], Pulmonary Nodule, [id number] Referrals: Andrzej Zhong Jr, MD [Primary Care Provider] - 07/06/19 8:30 am (Please follow up with Dr. Zhong on at 0830. ) Cami Chin NP [Nurse Practitioner] - 06/30/19 10:00 am (Please follow up with Cami Chin on WednesdayJun.30 at 1000.) - Discharge Summary/Plan Comment DC Time >30 min.: No Discharge Summary/Plan Comment: Discharge to Home - General Info Date of Service: 06/23/19 Admission Dx/Problem (Free Text: Admission Diagnosis/Problem Admission Diagnosis/Problem Gastrointestinal hemorrhage Subjective Update: He had an uneventful night. He has no acute issues or concerns. He feels pretty good this morning despite having his Hgb level down to 6.7. He had a one time episode of melenic stool. Functional Status: Reports: Pain Controlled, Tolerating Diet, Ambulating, Urinating. Denies: New Symptoms - Review of Systems General: Denies: Fever, Malaise, Chills HEENT: Reports: No Symptoms Pulmonary: Denies: Shortness of Breath, Pleuritic Chest Pain, Cough Cardiovascular: Denies: Chest Pain, Palpitations, Dyspnea on Exertion, Orthopnea , Edema, Lightheadedness Gastrointestinal: Denies: Abdominal Pain, Decreased Appetite, Hematochezia, Melena, Nausea, Vomiting Genitourinary: Reports: No Symptoms Musculoskeletal: Reports: No Symptoms Skin: Denies: Pallor, Diaphoresis, Bruising Neurological: Denies: Confusion, Dizziness, Syncope, Weakness, Gait Disturbance Psychiatric: Denies: Confusion, Depression, Mood Lability, Anxiety, Agitation, Cravings, Hallucinations, Suicidal Ideation Systems Review Comment: No overnight or acute issues. No report of melenic stool or rectal bleeding. - Patient Data Vitals - Most Recent: Last Vital Signs Temp 36.8 C 06/23/19 05:22 Pulse 84 06/23/19 05:22 Resp 16 06/23/19 05:22 BP 124/72 06/23/19 05:22 Pulse Ox 94 L 06/23/19 05:22 Orthostatic Blood Pressure [ 68/26 Standing] Orthostatic Blood Pressure [ 109/68 Sitting] Orthostatic Blood Pressure [ 105/70 Supine] Weight - Most Recent: 101.968 kg I&O - Last 24 hours: Intake & Output 06/22/19 06/23/19 06/23/19 22:59 06:59 14:59 Intake Total 300 500 Balance 300 500 Lab Results - Last 24 hrs: Laboratory Results - last 24 hr 06/20/19 06/22/19 06/22/19 Range/Units 12:25 04:30 06:00 WBC Cancelled 9.00 Corrected WBC Cancelled RBC Cancelled 2.15 L Hgb Cancelled 6.7 L* Hct Cancelled 21.2 L MCV Cancelled 98.6 H MCH Cancelled 31.2 MCHC Cancelled 31.6 L RDW Std Deviation Cancelled 47.7 H Plt Count Cancelled 202 MPV Cancelled 10.5 Neut % (Auto) Cancelled 75.4 H Lymph % (Auto) Cancelled 13.2 L [place] % (Auto) Cancelled 9.0 Eos % (Auto) Cancelled 1.5 Baso % (Auto) Cancelled 0.4 Neut # (Auto) Cancelled 7.00 H Lymph # (Auto) Cancelled 1.23 L [place] # (Auto) Cancelled 0.84 H Eos # (Auto) Cancelled 0.14 Baso # (Auto) Cancelled 0.04 Neutrophils % (Manual) Cancelled Band Neutrophils % Cancelled Lymphocytes % (Manual) Cancelled Atypical Lymphs % Cancelled Immat Monocytes % (Man) Cancelled Monocytes % (Manual) Cancelled Eosinophils % (Manual) Cancelled Basophils % (Manual) Cancelled Metamyelocytes % Cancelled Myelocytes % Cancelled Promyelocytes % Cancelled Blast Cells % Cancelled Plasma Cell % (Manual) Cancelled Immature Gran # Cancelled Absolute Neutrophils Cancelled Absolute Seg Neuts Cancelled Band Neutrophils # Cancelled Lymphocytes # (Manual) Cancelled Monocytes # (Manual) Cancelled Eosinophils # (Manual) Cancelled Basophils # (Manual) Cancelled Absolute Metamyelocyte Cancelled Absolute Myelocytes Cancelled Absolute Promyelocytes Cancelled Absolute Plasma Cells Cancelled Nucleated RBCs Cancelled Differential Comment Cancelled Manual Slide Review Cancelled Normal smear Hypersegmented Neuts Cancelled Atypical Lymphocytes Cancelled Vacuolated Monocytes Cancelled Absolute Blast Cells Cancelled Toxic Granulation Cancelled Dohle Bodies Cancelled Pelger-Huet Cells Cancelled Megakaryocytic Frags Cancelled Marcelo Rods Cancelled WBC Morphology Comment Cancelled Platelet Estimate Cancelled Clumped Platelets Cancelled Giant Platelets Cancelled Plt Morphology Comment Cancelled Polychromasia Cancelled Hypochromasia Cancelled Poikilocytosis Cancelled Basophilic Stippling Cancelled Anisocytosis Cancelled Microcytosis Cancelled Macrocytosis Cancelled Spherocytes Cancelled Pappenheimer Bodies Cancelled Sickle Cells Cancelled Target Cells Cancelled Tear Drop Cells Cancelled Ovalocytes Cancelled Stomatocytes Cancelled Helmet Cells Cancelled [place] Bodies Cancelled [place] Rings Cancelled Johnson Cells Cancelled Elliptocytes Cancelled Acanthocytes (Spur) Cancelled Rouleaux Cancelled Hemoglobin C Crystals Cancelled Schistocytes Cancelled RBC Morph Comment Cancelled Smear Path Review Cancelled Bird Bodies Cancelled Sodium (136-145) mEq/L Potassium (3.5-5.1) mEq/L Chloride (98-107) mEq/L Carbon Dioxide (21-32) mEq/L Anion Gap (5-15) BUN (7-18) mg/dL Creatinine (0.7-1.3) mg/dL Est Cr Clr Drug Dosing mL/min Estimated GFR (MDRD) (>60) mL/min BUN/Creatinine Ratio (14-18) Glucose (83-115) mg/dL Calcium (8.5-10.1) mg/dL Magnesium (1.8-2.4) mg/dl Slides for Path Review Cancelled Blood Type A POSITIVE Gel Antibody Screen Negative Crossmatch See Detail 06/23/19 06/23/19 Range/Units 04:42 04:42 WBC 8.86 Corrected WBC RBC 2.85 L Hgb 8.7 L D Hct 26.9 L MCV 94.4 H D MCH 30.5 MCHC 32.3 RDW Std Deviation 52.2 H Plt Count 164 MPV 11.5 Neut % (Auto) 73.4 H Lymph % (Auto) 13.9 L [place] % (Auto) 9.1 Eos % (Auto) 2.3 Baso % (Auto) 0.5 Neut # (Auto) 6.51 H Lymph # (Auto) 1.23 L [place] # (Auto) 0.81 Eos # (Auto) 0.20 Baso # (Auto) 0.04 Neutrophils % (Manual) Band Neutrophils % Lymphocytes % (Manual) Atypical Lymphs % Immat Monocytes % (Man) Monocytes % (Manual) Eosinophils % (Manual) Basophils % (Manual) Metamyelocytes % Myelocytes % Promyelocytes % Blast Cells % Plasma Cell % (Manual) Immature Gran # Absolute Neutrophils Absolute Seg Neuts Band Neutrophils # Lymphocytes # (Manual) Monocytes # (Manual) Eosinophils # (Manual) Basophils # (Manual) Absolute Metamyelocyte Absolute Myelocytes Absolute Promyelocytes Absolute Plasma Cells Nucleated RBCs Differential Comment Manual Slide Review Abnormal smear Hypersegmented Neuts Atypical Lymphocytes Vacuolated Monocytes Absolute Blast Cells Toxic Granulation Dohle Bodies Pelger-Huet Cells Megakaryocytic Frags Marcelo Rods WBC Morphology Comment Platelet Estimate Clumped Platelets Giant Platelets Plt Morphology Comment Polychromasia Hypochromasia Poikilocytosis Basophilic Stippling Anisocytosis Microcytosis Macrocytosis Spherocytes Pappenheimer Bodies Sickle Cells Target Cells Tear Drop Cells Ovalocytes Stomatocytes Helmet Cells [place] Bodies [place] Rings Johnson Cells Elliptocytes Acanthocytes (Spur) Rouleaux Hemoglobin C Crystals Schistocytes RBC Morph Comment Smear Path Review Bird Bodies Sodium 144 (136-145) mEq/L Potassium 3.6 (3.5-5.1) mEq/L Chloride 110 H (98-107) mEq/L Carbon Dioxide 25 (21-32) mEq/L Anion Gap 12.6 (5-15) BUN 17 (7-18) mg/dL Creatinine 0.8 (0.7-1.3) mg/dL Est Cr Clr Drug Dosing 83.47 mL/min Estimated GFR (MDRD) > 60 (>60) mL/min BUN/Creatinine Ratio 21.3 H (14-18) Glucose 111 (83-115) mg/dL Calcium 8.1 L (8.5-10.1) mg/dL Magnesium 2.1 (1.8-2.4) mg/dl Slides for Path Review Blood Type Gel Antibody Screen Crossmatch Med Orders - Current: Current Medications Acetaminophen (Tylenol) 650 mg PO Q4H PRN PRN Reason: Pain (Mild 1-3)/fever Hydrocodone Bitart/Acetaminophen ([place] 325-5 Mg) 1 tab PO Q4H PRN PRN Reason: Pain (moderate 4-6) Albuterol/Ipratropium (Duoneb 3.0-0.5 Mg/3 Ml) 3 ml NEB Q4H PRN PRN Reason: Shortness Of Breath/wheezing Ascorbic Acid (Vitamin C) 500 mg PO BID [facility] Last Admin: 06/22/19 20:23 Dose: 500 mg Diltiazem HCl (Dilacor Xr) 240 mg PO DAILY [facility] Last Admin: 06/22/19 09:18 Dose: 240 mg Hydralazine HCl (Apresoline) 10 mg IVPUSH Q4H PRN PRN Reason: Hypertension Promethazine HCl 6.25 mg/ (Sodium Chloride) 50.25 mls @ 100 mls/hr IV Q6H PRN PRN Reason: Nausea/Vomiting Metoprolol Tartrate (Lopressor) 5 mg IVPUSH Q4H PRN PRN Reason: Tachycardia Ondansetron HCl (Zofran) 4 mg IV Q6H PRN PRN Reason: Nausea/Vomiting Pantoprazole Sodium (Protonix) 40 mg PO BID [facility] Last Admin: 06/22/19 20:24 Dose: 40 mg Polysaccharide Iron Complex (Ferrex 150) 150 mg PO BID [facility] Last Admin: 06/22/19 20:23 Dose: 150 mg Rosuvastatin Calcium (Crestor) 10 mg PO DAILY [facility] Last Admin: 06/22/19 09:19 Dose: 10 mg Discontinued Medications Sodium Chloride (Normal Saline) 1,000 mls @ 999 mls/hr IV ASDIRECTED [facility] Last Admin: 06/20/19 12:59 Dose: 999 mls/hr Sodium Chloride (Normal Saline) 1,000 mls @ 250 mls/hr IV ASDIRECTED [facility] Last Admin: 06/20/19 14:50 Dose: 250 mls/hr Pantoprazole Sodium 80 mg/ (Sodium Chloride) 100 mls @ 10 mls/hr IV Q10H [facility] Stop: 06/21/19 11:00 Last Admin: 06/21/19 10:41 Dose: Not Given Sodium Chloride (Normal Saline) 250 mls @ 50 mls/hr IV ASDIRECTED JOSE Stop: 06/22/19 15:00 Last Admin: 06/22/19 14:22 Dose: 50 mls/hr Sodium Chloride (Normal Saline) 250 mls @ 50 mls/hr IV ASDIRECTED [facility] Last Admin: 06/22/19 15:15 Dose: 50 mls/hr Pantoprazole Sodium (Protonix Iv) 80 mg IVPUSH [facility]OLUS ONE Stop: 06/20/19 12:30 Last Admin: 06/20/19 12:53 Dose: 80 mg - Exam General: Reports: Alert, Oriented, Cooperative, No Acute Distress HEENT: Reports: Pupils Equal, Pupils Reactive, EOMI, Mucous Membr. Moist/[place] Neck: Reports: Supple Lungs: Reports: Clear to Auscultation, Normal Respiratory Effort Cardiovascular: Reports: Regular Rate, Regular Rhythm GI/Abdominal Exam: Normal Bowel Sounds, Soft, Non-Tender, No Organomegaly, No Distention, No Abnormal Bruit, No Mass (Male) Exam: Deferred Rectal (Males) Exam: Deferred Back Exam: Reports: Normal Inspection, Decreased Range of Motion Extremities: Normal Inspection, Normal Range of Motion, Non-Tender, No Pedal Edema, Normal Capillary Refill Skin: Reports: Warm, Dry, Intact Neurological: Reports: No New Focal Deficit, Normal Gait Psy/Mental Status: Reports: Alert, Normal Affect, Normal Mood
[2019-06-23] MEDS: Rosuvastatin 10 MG Tab PO SCH (08:05)
[2019-06-23] MEDS: Iron Polysaccharides Complex 150 MG Cap PO SCH (08:05)
[2019-06-23] MEDS: Pantoprazole 40 MG Tab.CR PO SCH (08:05)
[2019-06-23] MEDS: Ascorbic Acid 500 MG Tab PO SCH (08:05)
[2019-06-23] MEDS: Diltiazem 240 MG Cap.ER PO SCH (08:05)
== END 2019-06-23 10:05 | disposition home or self-care (01) | DRG 379 ==
LOC: JD.ED 11:55 → JD.ICU 14:53 → JD.MS 06-22 13:47
PROVIDERS: ADMIT Internal Medicine; ATTEND Internal Medicine
PROC: 30233N1 Transfusion of Nonautologous Red Blood Cells into Peripheral Vein, Percutaneous Approach (ICD-10-PCS; principal; 2019-06-22)
DX: K92.1 Melena (principal); I10 Essential (primary) hypertension; E66.9 Obesity, unspecified; D64.9 Anemia, unspecified; I95.1 Orthostatic hypotension; E78.5 Hyperlipidemia, unspecified; R06.02 Shortness of breath; R91.8 Other nonspecific abnormal finding of lung field; T39.015A Adverse effect of aspirin, initial encounter; T39.395A Adverse effect of other nonsteroidal anti-inflammatory drugs [NSAID], initial encounter; D72.829 Elevated white blood cell count, unspecified; D69.6 Thrombocytopenia, unspecified; R73.9 Hyperglycemia, unspecified; M54.5 Low back pain; G89.29 Other chronic pain; Z79.899 Other long term (current) drug therapy; Z79.82 Long term (current) use of aspirin; Z68.33 Body mass index [BMI] 33.0-33.9, adult
CPT/HCPCS: 36415; 71045; 71250; 80053; 83735; 83880; 84484; 85025; 85610; 85730; 86140; 86850; 86900; 86901; 86922; 93005; 96361; 96374; 99285; C9113; J7040 ×2; 36430; 80048; 82272; 85014; 85018; 97161-GP; 97165-GO; 97530-GO; A9270-GY; J7030; J7050; P9016

== ENCOUNTER 2019-07-24 07:58 | Emergency (ER) | payer MEDICARE, BC ==
--- NOTE | 2019-07-24 08:32 | EDM.PDOC ---
ED HPI GENERAL MEDICAL PROBLEM - General Chief Complaint: Cardiovascular Problem Stated Complaint: BP HIGH Time Seen by Provider: 07/24/19 08:31 Source of Information: Reports: Patient, RN Notes Reviewed - History of Present Illness INITIAL COMMENTS - FREE TEXT/NARRATIVE: 73-year-old male presented to outpatient surgery this morning for endoscopy, found to be in atrial fib with rapid ventricular response in the 120s to 140s. Therefore he was sent here for further evaluation. He is not aware that he does have history of atrial fib. He is not aware of being and atrophia at this time. Chest discomfort shortness of breath, palpitations unusual dizziness. No abdominal pain at this time. He is on Cardizem 240 long-acting or hypertension and possible rate control for atrial fib if he does indeed have that history. - Related Data Allergies Allergy/AdvReac Type Severity Reaction Status Date / Time No Known Allergies Allergy Verified 07/24/19 08:08 Home Meds: Home Meds Diltiazem HCl [Diltiazem 24Hr Cd] 240 mg PO DAILY 06/20/19 [History] atorvaSTATin [Lipitor] 40 mg PO DAILY 06/20/19 [History] Pantoprazole Sodium [Protonix] 40 mg PO DAILY #30 tablet. 06/23/19 [Rx] Ascorbic Acid/Ascorbate Sodium [Vitamin C 250 mg Tablet Chew] 250 mg PO BID [History] Flaxseed Oil/[place] 3,6,9 [Sv Flaxseed Oil 1,300 mg Sftgl] 1 cap PO DAILY [History] Iron Polysaccharides Complex [Ferrex 150] 150 mg PO BID 07/20/19 [History] Multivitamin [Daily Multiple Vitamin] 1 tab PO DAILY 07/20/19 [History] Garlic 1 tab PO DAILY 07/24/19 [History] Past Medical History HEENT History: Reports: Allergic Rhinitis, Impaired Vision Cardiovascular History: Reports: Afib, High Cholesterol, Hypertension Respiratory History: Reports: Asthma, Other (See Below) Other Respiratory History: Dyspnea Gastrointestinal History: Reports: Diverticulosis, GI Bleed Other Gastrointestinal History: Diverticulitis Genitourinary History: Reports: None Musculoskeletal History: Reports: None Neurological History: Reports: None Psychiatric History: Reports: None Endocrine/Metabolic History: Reports: None Hematologic History: Reports: Blood Transfusion(s) Other Hematologic History: 2 units PRBC on 06/22/19 Immunologic History: Reports: None Oncologic (Cancer) History: Reports: None Dermatologic History: Reports: None - Past Surgical History Head Surgeries/Procedures: Reports: None HEENT Surgical History: Reports: None Cardiovascular Surgical History: Reports: None Respiratory Surgical History: Reports: None GI Surgical History: Reports: Colonoscopy Male Surgical History: Reports: None Endocrine Surgical History: Reports: None Neurological Surgical History: Reports: None Musculoskeletal Surgical History: Reports: None Oncologic Surgical History: Reports: None Dermatological Surgical History: Reports: None Social & Family History - Family History Family Medical History: Noncontributory Neurological: Reports: CVA Oncologic: Reports: Leukemia, Prostate - Tobacco Use Smoking Status *Q: Never Smoker - Caffeine Use Caffeine Use: Reports: None - Recreational Drug Use Recreational Drug Use: No - Living Situation & Occupation Living situation: Reports: Occupation: Retired ED ROS GENERAL - Review of Systems Review Of Systems: See Below Constitutional: Denies: Fever, Chills, Diaphoresis HEENT: Reports: No Symptoms Respiratory: Denies: Shortness of Breath, Wheezing Cardiovascular: Denies: Chest Pain GI/Abdominal: Denies: Abdominal Pain, Nausea, Vomiting Musculoskeletal: Denies: Shoulder Pain, Arm Pain Skin: Denies: Rash Neurological: Denies: Numbness, Tingling, Trouble Speaking, Difficulty Walking, Weakness ED EXAM, GENERAL - Physical Exam Exam: See Below General Appearance: Alert, No Apparent Distress Eye Exam: Bilateral Eye: PERRL Throat/Mouth: Normal Inspection Respiratory/Chest: No Respiratory Distress, Lungs Clear, Normal Breath Sounds Cardiovascular: Irregularly Irregular GI/Abdominal: Soft, Non-Tender Extremities: Normal Inspection, Normal Range of Motion Neurological: Alert, Oriented, No Motor/Sensory Deficits Skin Exam: Warm, Dry, Normal Color, No Rash EKG INTERPRETATION EKG Date: 07/24/19 Rhythm: A-Fib [place]: Normal QRS: Normal ST-T: Normal Course - Vital Signs Last Recorded V/S: Last Vital Signs Temp 97.3 F 07/24/19 08:06 Pulse 130 H 07/24/19 08:06 Resp 13 07/24/19 11:51 BP 144/94 H 07/24/19 11:51 Pulse Ox 99 07/24/19 11:51 - Orders/Labs/Meds Orders: Active Orders 24 hr Category Date Time Status EKG 12 Lead [EKG Documentation Completion] [RC] STAT Care 07/24/19 08:40 Active Peripheral IV Care [RC] . DIRECTED Care 07/24/19 08:43 Active Peripheral IV Insertion Adult [OM.PC] Stat Oth 07/24/19 08:41 Ordered Labs: Laboratory Tests 07/24/19 07/24/19 07/24/19 Range/Units 08:26 08:51 08:51 WBC 6.21 (4.23-9.07) K/mm3 RBC 4.80 (4.63-6.08) M/mm3 Hgb 14.5 D (13.7-17.5) gm/dl Hct 44.8 (40.1-51.0) % MCV 93.3 H (79.0-92.2) fl MCH 30.2 (25.7-32.2) pg MCHC 32.4 (32.2-35.5) g/dl RDW Std Deviation 49.8 H (35.1-43.9) fL Plt Count 281 D (163-337) K/mm3 MPV 11.4 (9.4-12.3) fl Neut % (Auto) 81.4 H (34.0-67.9) % Lymph % (Auto) 10.3 L (21.8-53.1) % Bureau % (Auto) 6.9 (5.3-12.2) % Eos % (Auto) 0.6 L (0.8-7.0) Baso % (Auto) 0.6 (0.1-1.2) % Neut # (Auto) 5.05 (1.78-5.38) K/mm3 Lymph # (Auto) 0.64 L (1.32-3.57) K/mm3 Bureau # (Auto) 0.43 (0.30-0.82) K/mm3 Eos # (Auto) 0.04 (0.04-0.54) K/mm3 Baso # (Auto) 0.04 (0.01-0.08) K/mm3 Manual Slide Review Normal smear Sodium 140 (136-145) mEq/L Potassium 3.9 (3.5-5.1) mEq/L Chloride 106 (98-107) mEq/L Carbon Dioxide 24 (21-32) mEq/L Anion Gap 13.9 (5-15) BUN 11 (7-18) mg/dL Creatinine 0.9 (0.7-1.3) mg/dL Est Cr Clr Drug Dosing 74.19 mL/min Estimated GFR (MDRD) > 60 (>60) mL/min BUN/Creatinine Ratio 12.2 L (14-18) Glucose 129 H (83-115) mg/dL Calcium 9.2 (8.5-10.1) mg/dL Total Bilirubin 0.5 (0.2-1.0) mg/dL AST 22 (15-37) U/L ALT 43 (16-63) U/L Alkaline Phosphatase 69 (46-116) U/L Total Protein 7.0 (6.4-8.2) g/dl Albumin 3.6 (3.4-5.0) g/dl Globulin 3.4 gm/dL Albumin/Globulin Ratio 1.1 (1-2) Urine Color Yellow (Yellow) Urine Appearance Clear (Clear) Urine pH 7.5 (5.0-8.0) Ur Specific [place] 1.020 (1.005-1.030) Urine Protein Negative (Negative) Urine Glucose (UA) Negative (Negative) Urine Ketones Negative (Negative) Urine Occult Blood Negative (Negative) Urine Nitrite Negative (Negative) Urine Bilirubin Negative (Negative) Urine Urobilinogen 0.2 (0.2-1.0) Ur Leukocyte Esterase Negative (Negative) Urine RBC Not seen (0-5) /hpf Urine WBC Not seen (0-5) /hpf Ur Epithelial Cells 0-5 (0-5) /hpf Urine Bacteria Not seen (FEW) /hpf Urine Mucus Not seen (FEW) /hpf Meds: Medications Discontinued Medications Generic Name Dose Route Start Last Admin Trade Name Freq PRN Reason Stop Dose Admin Diltiazem HCl 20 mg 07/24/19 08:42 07/24/19 09:43 Cardizem IVPUSH 07/24/19 08:43 10 mg ONETIME ONE Administration Sodium Chloride 1,000 mls @ 150 mls/hr 07/24/19 08:45 07/24/19 08:51 Normal Saline IV 150 mls/hr ASDIRECTED JOSE Administration Sodium Chloride 10 ml 07/24/19 08:42 07/24/19 08:52 Saline Flush FLUSH 10 ml ASDIRECTED PRN Administration Keep Vein Open Departure - Departure Time of Disposition: 11:40 Disposition: Home, Self-Care 01 Condition: Fair Clinical Impression: Atrial fibrillation with RVR Instructions: Atrial Fibrillation, [id number] Referrals: Andrzej Zhong Jr, MD [Primary Care Provider] - Forms: ED Department Discharge Additional Instructions: continue current medications for now, you can go back to normal diet for now. See Dr Zhong at the clinic tomorrow AM, you will be given a time upon discharge from the ED. - My Orders Last 24 Hours: My Active Orders 07/24/19 08:40 EKG 12 Lead [EKG Documentation Completion] [RC] STAT 07/24/19 08:41 Peripheral IV Insertion Adult [OM.PC] Stat 07/24/19 08:43 Peripheral IV Care [RC] . DIRECTED - Assessment/Plan Last 24 Hours: My Active Orders 07/24/19 08:40 EKG 12 Lead [EKG Documentation Completion] [RC] STAT 07/24/19 08:41 Peripheral IV Insertion Adult [OM.PC] Stat 07/24/19 08:43 Peripheral IV Care [RC] . DIRECTED
[2019-07-24] MEDS ORDERED: Sodium Chloride 0.9% 10 ML Syringe FLUSH PRN (08:42)
[2019-07-24] MEDS ORDERED: Sodium Chloride 0.9% 1,000 ML IV SCH (08:45)
[2019-07-24] MEDS: Diltiazem 50 MG/10 ML SDV IVPUSH ONE ×2 (08:53→09:43)
--- NOTE | 2019-07-24 09:50 | CR ---
Chest: Portable view of the chest was obtained. Comparison: Prior chest x-ray of 06/20/19. Findings: Heart size is normal. Tortuous thoracic aorta is seen. Nodule is noted within the left chest which remains stable. Lungs otherwise are clear. Bony structures are grossly intact. Impression: 1. Stable nodule. 2. Nothing acute is appreciated on portable chest x-ray. Diagnostic code #2
== END 2019-07-24 11:51 | disposition home or self-care (01) ==
LOC: JD.ED 07:58
DX: I48.91 Unspecified atrial fibrillation (principal); Z79.899 Other long term (current) drug therapy
CPT/HCPCS: 36415; 71045; 80053; 81001; 85025; 93005; 96361; 96374; 96376; 99285; J3490; J7040; 93010; 99283

== ENCOUNTER → 2019-07-24 | Day surgery (SDC) | payer MEDICARE, BC ==
[~2019-07-24] MED LIST: Lactated Ringers 1,000 ML IV SCH; Lidocaine 1%/Sod Bicarbonate in NS 8.4% 1 ML Syringe IDERM PRN; Sodium Chloride 0.9% 10 ML Syringe FLUSH PRN
--- NOTE | 2019-07-24 07:41 | PCM.PREANE ---
Preanesthetic Assessment - Procedure Proposed Procedure: egd - Anesthesia/Transfusion/Family Hx Anesthesia History: No Prior Anesthesia Family History of Anesthesia Reaction: No Transfusion History: Prior Transfusion Without Reaction Intubation History: Unknown - Review of Systems General: No Symptoms Pulmonary: Other (EXERCISE INTOLERANCE, ALLERGIES, NO INHALER USE, ASTHMa ) Cardiovascular: No Symptoms Gastrointestinal: Melena Neurological: No Symptoms Other: Reports: None - Physical Assessment NPO Status Date: 07/23/19 NPO Status Time: 20:00 Weight: 100.2 kg ASA Class: 3 Mental Status: Alert & Oriented x3 Dentition: Reports: Missing Tooth/Teeth (poor dentition ), Caries Thyro-Mental Finger Breadths: 3 Mouth Opening Finger Breadths: 5 ROM/Head Extension: Full Cardiovascular: Irregular Rhythm (a fib ), Tachycardia - Allergies Allergies/Adverse Reactions: Allergies Allergy/AdvReac Type Severity Reaction Status Date / Time No Known Allergies Allergy Verified 07/20/19 10:57 - Blood Blood Available: No - Anesthesia Plan Pre-Op Medication Ordered: None - Acknowledgements Anesthesia Type Planned: MAC (canceling procedure due to A. Fib RVR ) Pt an Appropriate Candidate for the Planned Anesthesia: No PreAnesthesia Questionnaire HEENT History: Reports: Allergic Rhinitis, Impaired Vision Cardiovascular History: Reports: Afib, High Cholesterol, Hypertension Respiratory History: Reports: Asthma, Other (See Below) Other Respiratory History: Dyspnea Gastrointestinal History: Reports: Other (See Below) Other Gastrointestinal History: Diverticulitis Genitourinary History: Reports: None Musculoskeletal History: Reports: None Neurological History: Reports: None Psychiatric History: Reports: None Endocrine/Metabolic History: Reports: None Hematologic History: Reports: Blood Transfusion(s) Other Hematologic History: 2 units PRBC on 06/22/19 Immunologic History: Reports: None Oncologic (Cancer) History: Reports: None Dermatologic History: Reports: None - Past Surgical History Head Surgeries/Procedures: Reports: None HEENT Surgical History: Reports: None Cardiovascular Surgical History: Reports: None Respiratory Surgical History: Reports: None GI Surgical History: Reports: Colonoscopy Male Surgical History: Reports: None Endocrine Surgical History: Reports: None Neurological Surgical History: Reports: None Musculoskeletal Surgical History: Reports: None Oncologic Surgical History: Reports: None Dermatological Surgical History: Reports: None - SUBSTANCE USE Smoking Status *Q: Former Smoker Second Hand Smoke Exposure: No Recreational Drug Use History: No - HOME MEDS Home Medications: Home Meds Diltiazem HCl [Diltiazem 24Hr Cd] 240 mg PO DAILY 06/20/19 [History] atorvaSTATin [Lipitor] 40 mg PO DAILY 06/20/19 [History] Pantoprazole Sodium [Protonix] 40 mg PO DAILY #30 tablet. 06/23/19 [Rx] Ascorbic Acid/Ascorbate Sodium [Vitamin C 250 mg Tablet Chew] 250 mg PO BID [History] Flaxseed Oil/[place] 3,6,9 [Sv Flaxseed Oil 1,300 mg Sftgl] 1 cap PO DAILY [History] Iron Polysaccharides Complex [Ferrex 150] 150 mg PO BID 07/20/19 [History] Multivitamin [Daily Multiple Vitamin] 1 tab PO DAILY 07/20/19 [History] - CURRENT (IN HOUSE) MEDS Current Meds: Current Medications Lactated Ringer's (Ringers, Lactated) 1,000 mls @ 125 mls/hr IV ASDIRECTED JOSE Stop: 07/24/19 23:00 Lidocaine/Sodium Bicarbonate (Buffered Lidocaine 1% In Ns 8.4%) 0.25 ml IDERM ONETIME PRN PRN Reason: Prior to IV Start Stop: 07/24/19 18:00 Sodium Chloride (Saline Flush) 10 ml FLUSH ASDIRECTED PRN PRN Reason: Keep Vein Open Stop: 07/24/19 18:00
== END ==
LOC: JD.SDS 06:56
PROVIDERS: ATTEND Surgery
DX: K92.1 Melena (principal); E78.00 Pure hypercholesterolemia, unspecified; I10 Essential (primary) hypertension; J45.909 Unspecified asthma, uncomplicated; Z53.09 Procedure and treatment not carried out because of other contraindication; Z87.891 Personal history of nicotine dependence; Z79.899 Other long term (current) drug therapy
CPT/HCPCS: J7120